=== PATIENT | male | born 1980 | race Caucasian/White ===

== ENCOUNTER 2020-10-10 11:55 | Emergency (ER) | payer OTHER, SELFPAY ==
--- NOTE | ~2020-10-10 | XR_ITS ---
EXAMINATION: XR chest 2V DATE: 10/10/2020 12:53 INDICATION: Cough and shortness of breath TECHNIQUE: PA and lateral views of the chest are obtained. COMPARISON: None available FINDINGS: The lungs are free of acute opacities. There is no pleural effusion or pneumothorax. The ca rdiomediastinal silhouette is normal. There is dextrocurvature of the thoracic spine. IMPRESSION: 1. No acute cardiopulmonary abnormality. Reviewed, dictated and finalized at location A.
[2020-10-10 12:06] VITALS: BP 120/78; PULSE 90; RESP 20; TEMP 36.9; O2SAT 93
--- NOTE | 2020-10-10 12:46 | ED.GENADULT ---
HPI - General Adult General Chief complaint: Dental/Oral Stated complaint: tooth absess Time Seen by Provider: 10/10/20 12:06 Source: patient Mode of arrival: ambulatory Limitations: no limitations History of Present Illness HPI narrative: Patient presents for evaluation of right-sided facial pain and swelling. Symptom onset yesterday. Indicates he was driving home from work when he felt a shaking sensation. He also experienced chills. He states pain in his right lower teeth is sharp, throbbing, without numerical rating. No fever, chills, nausea, vomiting. He indicates he has had some difficulty breathing for the last few weeks. Reports shortness of breath, wheezing, productive cough of white sputum. He does smoke 1-1/2 packs/day. No recent sick contacts. He is already had Covid in the past. He did not get a Covid vaccination. Related Data Allergies Allergy/AdvReac Type Severity Reaction Status Date / Time peanut Allergy Mild Unknown Verified 10/10/20 12:05 BUBBLE GUM Allergy Mild Swelling Uncoded 10/10/20 12:05 IVP DYE Allergy Mild Unknown Uncoded 10/10/20 12:05 IV DYE, IODINE CONTAINING Allergy Unknown Unknown Uncoded 10/10/20 12:05 CONTRAST Review of Systems Review of Systems: Narrative: CONSTITUTIONAL: Reports chills. Denies fever EYES: Denies visual changes, redness, or discharge. ENT: Reports right lower dental pain. Denies rhinorrhea, congestion, sore throat, or otalgia. CARDIOVASCULAR: Denies chest pain, palpitations, or edema. RESPIRATORY: Reports productive cough of white sputum, shortness of wheezing. GASTROINTESTINAL: Denies abdominal pain, nausea, vomiting, or diarrhea. GENITOURINARY: Denies dysuria or hematuria. SKIN: Denies rash or itching. MUSCULOSKELETAL: Denies back pain, joint pain, or myalgia. NEUROLOGIC: Denies headache, numbness, dizziness, or weakness. PSYCHIATRIC: Denies anxiety or depression. [facility] Past Medical History Medical History (Updated 10/10/20 @ 13:57 by ROSLYN Wang, RICHELLE) Allergies Surgical History Surgical History No pertinent past surgical history Family History Family History Mother No problems noted. Social History Social History Smoking status: Current every day smoker Additional smoking assessment comments: 1.5 ppd Substance use: never Living arrangements: alone Gender identity (if verbalized by the patient): Male Spiritual care concerns: No Exam Narrative: Exam Narrative: GENERAL: Well-appearing, well-nourished, and in no acute distress. HEAD: Normocephalic, atraumatic. EYES: PERRLA and EOMI. ENT: Nares clear, no rhinorrhea or epistaxis. Mucous membranes moist. Diffuse dental decay. Multiple fractured teeth. Multiple absent teeth. No visible or palpable abscess. Oropharynx without tonsillar hypertrophy exudate or other lesions. Bilateral TMs pearly fitch nonbulging NECK: Supple. No adenopathy or masses. No carotid bruits or JVD CHEST: Poor inspiratory effort. Lungs bilaterally diminished no respiratory distress. No wheezes rales or rhonchi HEART: Regular rate and rhythm. No murmur heard. Normal peripheral pulses. ABDOMEN: Soft, nontender, nondistended, normal active bowel sounds. EXTREMITIES: Normal range of motion. No edema. SKIN: Warm, dry, no rash. NEURO: No focal deficits. Alert and oriented x3. PSYCH: Normal mood and affect. Course Course Emergency Course: This is a 39-year-old male who presented with complaints of dental pain. On exam he had a cough with reported shortness of breath. Chest x-ray was obtained was negative for acute process. Will treat dental decay with analgesics and abx. Advised follow up outpatient and return for worsening symptoms. Vital Signs Vital signs: Vital Signs Temperature 36.9 C 10/10/20 12
[2020-10-10 14:11] VITALS: BP 136/85; PULSE 84; RESP 20; TEMP 36.9; O2SAT 96
== END 2020-10-10 14:05 | disposition home or self-care (01) ==
PROVIDERS: Emergency Provider Nurse Practitioner; PCP Internal Medicine
DX: K02.9 Dental caries, unspecified (principal); F17.210 Nicotine dependence, cigarettes, uncomplicated
CPT/HCPCS: 71046; 99283

== ENCOUNTER 2020-10-14 17:43 | Outpatient (CLI) | payer OTHER, SELFPAY ==
[2020-10-14 17:54] LABS: Basophils Absolute Auto 0.1 K/mm3 (0.0-0.1); Basophils Percent Auto 0.4 % (0.2-1.2); Eosinophils Absolute Auto 0.2 K/mm3 (0-0.3); Eosinophils Percent Auto 0.9 % (0-4.4); Hematocrit 49.3 % (42.0-52.0); Hemoglobin 16.1 g/dL (14.0-18.0); Immature Granulocyte Absolute 0.11 K/mm3 (0.00-0.031); Immature Granulocyte Percent A 0.7 % (0-0.5); Lymphocytes Absolute Auto 1.87 K/mm3 (0.9-3.2); Lymphocytes Percent Auto 11.4 % (18.3-44.2); Mean Corpuscular HGB Conc 32.7 g/dl (32-36); Mean Corpuscular Hemoglobin 29.9 pg (26-34); Mean Corpuscular Volume 91.5 fl (80-100); Monocytes Percent Auto 5.9 % (2.6-8.5); Neutrophils Absolute Auto 13.2 K/mm3 (1.3-6.7); Neutrophils Percent Auto 80.7 % (45.5-73.1); Platelet Count Result 350 k/mm3 (150-375); Red Blood Count 5.39 M/mm3 (4.6-6.20); Red Cell Distribution Width 13.4 % (11.5-14.5); White Blood Count 16.4 K/mm3 (4.5-10.0)
[2020-10-14 18:04] LABS: Alanine Aminotransferase 21 U/L (4-50); Albumin Level 4.1 g/dL (3.5-5.1); Alkaline Phosphatase 62 U/L (38-126); Anion Gap 9 mmol/L (8-16); Aspartate Amino Transferase 26 U/L (17-59); Bilirubin,Total 0.6 mg/dL (0.2-1.3); Blood Urea Nitrogen 11 mg/dL (9-20); Calcium 9.1 mg/dL (8.4-10.2); Carbon Dioxide 25 mmol/L (22-30); Chloride 104 mmol/L (98-107); Estimated Glomerular Filt Rate > 60; Glucose 102 mg/dL (75-110); Potassium 4.5 mmol/L (3.4-5.0); Sodium 138 mmol/L (137-145)
== END 2020-10-14 17:44 | disposition home or self-care (01) ==
PROVIDERS: PCP Internal Medicine; Visit Provider Nurse Practitioner
DX: K04.7 Periapical abscess without sinus (principal)
CPT/HCPCS: 36415; 80053; 85025

== ENCOUNTER 2020-11-18 10:02 | Outpatient (CLI) | payer OTHER, SELFPAY ==
--- NOTE | 2020-11-18 10:09 | EST_ITS ---
Patient Info Name: Artie Rasheed Age: 39 years : 1980 Gender: Male Ht: 76 in Wt: 425 lbs BSA: 3.31 m2 Exam Date: 11/18/2020 10:23 AM Exam Location: [facility] Stress Patient Status: Outpatient Admit Date: 11/18/2020 Staff Ordering Physician: Osiris Cohen NP Attending Provider: Exercise Technologist: Cricket Quintero, TONJA, RT Exercise Physician: Jose Juan Chicas DO Exam Type: CA stress test treadmill Study Info A treadmill exercise stress test was performed. Summary 1. 1. Negative Tristan exercise stress test for ischemic ST changes by ECG criteria. However, patient achieved only 77% MPHR for age group which reduces sensitivity of the test. 2. 2. Poor functional capacity, achieving 4 METs of workload. 3. 3. Appropriate HR response to exercise. 4. 4. Appropriate HR recovery at 1 minute post exercise. 5. 5. No imaging with stress testing. 6. 6. Patient informed of the above results. Protocol: Tristan Stress ECG Details Stage: REST Duration (min): 3 min : 7 sec Speed (mph): 0.0 Grade (%): 0 HR (bpm): 88 SBP (mmHg): 123 DBP (mmHg): 76 METS: --- Stage: REST Duration (min): 3 min : 25 sec Speed (mph): 0.0 Grade (%): 0 HR (bpm): 91 SBP (mmHg): 123 DBP (mmHg): 76 METS: --- Stage: STAGE 1 Duration (min): 1 min : 0 sec Speed (mph): 1.7 Grade (%): 10 HR (bpm): 117 SBP (mmHg): 123 DBP (mmHg): 76 METS: --- Stage: STAGE 1 Duration (min): 2 min : 0 sec Speed (mph): 1.7 Grade (%): 10 HR (bpm): 131 SBP (mmHg): 123 DBP (mmHg): 76 METS: --- Stage: STAGE 1 Duration (min): 2 min : 59 sec Speed (mph): 1.7 Grade (%): 10 HR (bpm): 137 SBP (mmHg): 159 DBP (mmHg): 78 METS: --- Stage: RECOVERY Duration (min): 1 min : 0 sec Speed (mph): 0.0 Grade (%): 0 HR (bpm): 124 SBP (mmHg): 159 DBP (mmHg): 78 METS: --- Stage: RECOVERY Duration (min): 2 min : 0 sec Speed (mph): 0.0 Grade (%): 0 HR (bpm): 104 SBP (mmHg): 159 DBP (mmHg): 78 METS: --- Stage: RECOVERY Duration (min): 3 min : 0 sec Speed (mph): 0.0 Grade (%): 0 HR (bpm): 101 SBP (mmHg): 162 DBP (mmHg): 77 METS: --- Stage: RECOVERY Duration (min): 3 min : 22 sec Speed (mph): 0.0 Grade (%): 0 HR (bpm): 100 SBP (mmHg): 162 DBP (mmHg): 77 METS: --- Rest HR: 91 bpm Peak HR: 138 bpm Rest Sys BP: 123 mmHg Peak Sys BP: 162 mmHg Max Pred HR: 179 bpm % Max Pred HR: 77 % Target HR: 152 bpm Max RPP: 22,356 bpm*mmHg Medina Score: -2 Termination Reason: Maximal effort/unable to continue Cardiac Symptoms: Shortness of breath, Baseline sob and audibly sob with exercise Max ST Seg Deviation: 1.00 mm Total Time: 2 min : 59 sec Rest Mcpherson BP: 76 mmHg Peak Mcpherson BP: 77 mmHg Angina Score: None Total METS: 4.7 Resting ECG Sinus rhythm, IRBBB. Stress ECG No ST changes. Arrhythmias None. Report Signatures Electronically signed by Jose Juan Chicas DO on
== END 2020-11-18 10:03 | disposition home or self-care (01) ==
PROVIDERS: PCP Internal Medicine; Visit Provider Nurse Practitioner
DX: R06.02 Shortness of breath (principal)
CPT/HCPCS: 93017

== ENCOUNTER 2024-06-13 18:42 | Emergency (ER) | payer OTHER, SELFPAY ==
--- NOTE | ~2024-06-13 | XR_ITS ---
EXAMINATION: XR forearm LT 2V DATE: 06/13/2024 20:29 INDICATION: Left elbow pain. TECHNIQUE: 2 views of left forearm were obtained. COMPARISON: None. FINDINGS: Alignment is normal. No fracture. Joint spaces are normal. No elbow joint effusion. IMPRESSION: 1. Normal left forearm. Reviewed, dictated and finalized at location A. AL WINDER IMPRESSION: 1. Normal left forearm.
--- NOTE | ~2024-06-13 | XR_ITS ---
EXAMINATION: XR knee RT 3V DATE: 06/13/2024 20:29 INDICATION: Right knee pain. TECHNIQUE: 3 views of right knee were obtained. COMPARISON: None. FINDINGS: Alignment is normal. No fracture. There is moderate osteoarthritis of lateral and patellofe moral compartments and mild osteoarthritis of medial compartment. There is a small knee joint effusio n. IMPRESSION: 1. Moderate right knee osteoarthritis. 2. Small right knee joint effusion. Reviewed, dictated and finalized at location A. CTOR OF PHARMACY
--- NOTE | ~2024-06-13 | CT_ITS ---
EXAMINATION: CT brain wo con DATE: 06/13/2024 20:34 INDICATION: Left-sided numbness and tingling. TECHNIQUE: Computed tomography (CT) of the head was performed without intravenous contrast. The mA wa s adjusted according to patient size. Iterative reconstruction technique was employed. The dose-lengt h product was 908.00 mGy-cm. COMPARISON: None FINDINGS: There is no intracranial hemorrhage, acute infarction, or abnormal intracranial mass lesion . The ventricles are normal in size. There is mucosal thickening in the paranasal sinuses. The orbit s are normal. The mastoid air cells are normal. IMPRESSION: 1. Normal brain. Reviewed, dictated and finalized at location A. OWCASE TURNER IMPRESSION: 1. Normal brain.
--- NOTE | ~2024-06-13 | XR_ITS ---
EXAMINATION: XR elbow LT min 3V DATE: 06/13/2024 20:29 INDICATION: Left elbow pain. TECHNIQUE: 4 views of left elbow were obtained. COMPARISON: None. FINDINGS: Alignment is normal. No fracture. Joint spaces are normal. No elbow joint effusion. IMPRESSION: 1. Normal left elbow. Reviewed, dictated and finalized at location A. IMPRESSION: 1. Normal left elbow.
--- NOTE | ~2024-06-13 | XR_ITS ---
EXAMINATION: XR tibia fibula RT 2V DATE: 06/13/2024 20:29 INDICATION: Right lower leg pain. TECHNIQUE: 2 views of right tibia and fibula on 4 radiographs were obtained. COMPARISON: None. FINDINGS: Alignment is normal. No fracture. There is moderate right knee osteoarthritis. There is a s mall knee joint effusion. IMPRESSION: 1. Moderate right knee osteoarthritis. 2. Small right knee joint effusion. Reviewed, dictated and finalized at location A. H DYER
--- OUTSIDE RECORDS SUMMARY | 2024-06-13 18:44 | XMS_ITS | Clinical Summary ---
Author Organization [facility] Address [address] [place] [address] Care Team Providers Care Adzing And Boring Machine Operator Name Role Phone Unavailable Primary Care Provider Unavailabl e Source Comments [facility],non-owned Affiliates and Associated Physician Practices is amultiple site organization consisting of ambulatory clinics and hospital sitesin [place], [place], [place] and [place]. This disclosure is being madepursuant to the Care Everywhere program and may not contain all information available regarding this patient. Last updated 18.[facility] Allergies Active Allergy Reactions Criticality Noted Date Comments Contrast-Iodinated Agents For Ct/Other Other 06/29/2018 unknown Medications Be aware that medications may not be up to date on this document. Always verify current medications with the patient. 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 Social History Tobacco Use Types Packs/Day Years Used Date Smoking Tobacco: Every Day Smokeless Tobacco: Never Alcohol Use Standard Drinks/Week Comments No 0 (1 standard drink = 0.6 oz pur e alcohol) Sex and Gender Information Value Date Recorded Sex Assigned at Not on file Gender Identity Not on file Sexual Orientation Not on file Last Filed Vital Signs Vital Sign Reading Time Taken Comments Blood Pressure 123/85 07/02/2018 8:00 AM CDT Pulse 86 07/02/2018 8:00 AM CDT Temperature 36.7 C (98 F) 07/02/2018 8:00 AM CDT Respiratory Rate 18 07/02/2018 8:00 AM CDT Oxygen Saturation 99% 07/02/2018 8:00 AM CDT Inhaled Oxygen Concentration - - Weight 163.3 kg (360 lb 1 oz) 06/29/2018 9:00 PM LIPCOAT SPRAYER Height 195.6 cm (6' 5 ) 06/29/2018 9:00 PM LIPCOAT SPRAYER Body Mass Index 42.7 06/29/2018 9:00 PM LIPCOAT SPRAYER Plan of Treatment Health Maintenance Due Date Last Done Comments COLOGUARD (AGES 45-75) - COL ON CA SCREENING 1980 COLON MONITORING 1980 COLONOSCOPY - COLON CA SCREENING 1980 CT COLONOGRAPHY - COLON CA SCREENING 1980 Colorectal Cancer Screening 1980 FIT - COLON CA SCREENING 1980 FLEX SIG - COLON CA SCREENING 1980 HEPATITIS C SCREENING 12/15/1996 DTAP/TDAP/TD VACCINES (1 - Tdap) 1997 HEPATITIS B VACCINE (1 of 3 - 19+ 3-dose series) 1997 PNEUMOCOCCAL VACCINE (1 of 2 - PCV) 1997 LIPID TESTING 07/02/2023 07/01/2018 COVID-19 VACCINE (1 - 2023-2 5 season) 2023 INFLUENZA VACCINE (#1) 2023 DEPRESSION SCREENING 04/24/2024 ZOSTER VACCINE (1 of 2) 2028 HIV SCREENING Completed 06/29/2018 HIB VACCINE Aged Out No longer eligi ble based on patient's age to complete this topic HPV VACCINE Aged Out No longer eligi ble based on patient's age to complete this topic MENINGOCOCCAL (Group B) VACCINE Aged Out No longer eligible based on patient's age to complete this topic MENINGOCOCCAL VACCINE Aged Out No ne aram eligible based on patient's age to complete this topic Procedures Procedure Name Priority Date/Time Associated Diagnosis Comments LIPID PROFILE Routine 07/01/2018 6:34 AM CDT HIV-1 HIV-2 ANTIGEN/ANTIBODY STAT 06/29/2018 4:34 PM LIPCOAT SPRAYER from Last 3 Months or Most Recently Relevant to Health Maintenance Results * (ABNORMAL) LIPID PROFILE (07/01/2018 6:34 AM CDT) Cholesterol Total 184 <200 mg/dL 07/01/2018 7:05 AM CDT [facility] HDL 31(L) >40 mg/dL 07/01/2018 7:05 AM [facility] Comment: ATP III Classification of HDL Cholesterol: <40 mg/dL: Considered a major risk factor. >60 mg/dL: Considered a negative risk factor. LDL Calculated 127(H) <100 mg/dL 07/01/2018 7:05 AM [facility] Comment: ATP III Classification of LDL Cholesterol: <100 mg/dL: Optimal 100 - 129 mg/dL: Near Optimal/Above Optimal 130 - 159 mg/dL: Borderline High 160 - 189 mg/dL: High >190 mg/dL: Very High Triglycerides 130 <150 mg/dL 07/01/2018 7:05 AM [facility] Comment: ATP III Classification of Triglycerides: <150 mg/dL: Normal 150 - 199 mg/dL: Borderline High 200 - 400 mg/dL: High >500 mg/dL: Very High Blood BLOOD SPECIMEN / Unknown Venipuncture / Unknown 07/01/2018 6:34 AM CDT 07/01/2018 6:39 AM CDT Elsa Morejon MD LAB - CHEMISTRY [facility] Performing Organization Address City/[facility]/ZIP Co de Phone Number [address] [phone] * HIV-1 HIV-2 ANTIGEN/ANTIBODY (06/29/2018 4:34 PM LIPCOAT SPRAYER) HIV Antigen/Antibod y 1 & 2 Non-reacti ve Non-react belinda 06/29/2018 5:17 PM LIPCOAT SPRAYER [facility] Comment: Neither HIV-1 p24 Antigen nor HIV-1/HIV-2 Antibodies are detected. Blood BLOOD SPECIMEN / Unknown Venipuncture / Unknown 06/29/2018 4:34 PM LIPCOAT SPRAYER 06/29/2018 4:34 PM LIPCOAT SPRAYER Elia Caba MD LAB - HEMATOLOGY OR DERABLES Performing Organization Address City/[facility]/ZIP Co de Phone Number [address] [phone] from Last 3 Months or Most Recently Relevant to Health Maintenance Advance Directives * Full Code (Latest Code Status on File) Date Activated Date Inactivated Comments 06/29/2018 8:50 PM 07/02/2018 3:59 PM * Full Code Date Activated Date Inactivated Comments 06/29/2018 12:23 PM 06/29/2018 8:50 PM
--- OUTSIDE RECORDS SUMMARY | 2024-06-13 18:44 | XMS_ITS | Referral Summary ---
Author Organization [facility] [employer] Address [address] [place] [address] Care Team Providers Care Offshoring Manager Name Role Phone Unavailable Primary Care Provider Unavailabl e Source Comments [facility],non-owned Affiliates and Associated Physician Practices is amultiple site organization consisting of ambulatory clinics and hospital sitesin [place], [place]. This disclosure is being madepursuant to the Care Everywhere program and may not contain all information available regarding this patient. Last updated 18.[facility] [employer] Allergies Active Allergy Reactions Criticality Noted Date [...] (360 lb 1 oz) 06/29/2018 9:00 PM STAFF TRAINER Height 195.6 cm (6' 5 ) 06/29/2018 9:00 PM STAFF TRAINER Body Mass Index 42.7 06/29/2018 9:00 PM STAFF TRAINER Functional Status Functional Status Response Date of Assess ment Is person deaf or have serious hearing difficult y? No 06/29/2018 Is person blind or have serious difficulty seein g? No 06/29/2018 Does person have serious dif ficulty walking/climbing stairs? No 06/29/2018 Does person have difficulty dressing/bathing? No 06/29/2018 Does person have difficulty doing errands alone? No 06/29/2018 Cognitive Status Response Date of Assessm ent Does person have difficulty concentrating/remembering/making decisions? No 06/29/2018 Plan of Treatment Not on file Procedures Procedure Name Priority Date/Time Associated Diagnosis Comments LIPID PROFILE Routine 07/01/2018 6:34 AM CDT HIV-1 HIV-2 ANTIGEN/ANTIBODY STAT 06/29/2018 4:34 PM STAFF TRAINER from Last 3 Months or Most Recently Relevant to Health Maintenance Results * (ABNORMAL) LIPID PROFILE (07/01/2018 6:34 AM CDT) Cholesterol Total 184 <200 mg/dL 07/01/2018 7:05 AM [facility] HDL 31(L) >40 mg/dL 07/01/2018 7:05 AM [facility] Comment: ATP III Classification of HDL Cholesterol: <40 mg/dL: Considered a major risk factor. >60 mg/dL: Considered a negative risk factor. LDL Calculated 127(H) <100 mg/dL 07/01/2018 7:05 AM [facility] Comment: ATP III Classification of LDL Cholesterol: <100 mg/dL: Optimal 100 - 129 mg/dL: Near Optimal/Above Optimal 130 - 159 mg/dL: Borderline High 160 - 189 mg/dL: High >190 mg/dL: Very High Triglycerides 130 <150 mg/dL 07/01/2018 7:05 AM [facility] Comment: ATP III Classification of Triglycerides: <150 mg/dL: Normal 150 - 199 mg/dL: Borderline High 200 - 400 mg/dL: High >500 mg/dL: Very High Blood BLOOD SPECIMEN / Unknown Venipuncture / Unknown 07/01/2018 6:34 AM CDT 07/01/2018 6:39 AM CDT Elsa Morejon MD LAB - CHEMISTRY [facility] [address] [phone] * HIV-1 HIV-2 ANTIGEN/ANTIBODY (06/29/2018 4:34 PM STAFF TRAINER) HIV Antigen/Antibod y 1 & 2 Non-reacti ve Non-react belinda 06/29/2018 5:17 PM STAFF TRAINER [facility] Comment: Neither HIV-1 p24 Antigen nor HIV-1/HIV-2 Antibodies are detected. Blood BLOOD SPECIMEN / Unknown Venipuncture / Unknown 06/29/2018 4:34 PM STAFF TRAINER 06/29/2018 4:34 PM STAFF TRAINER Elia Caba MD LAB - HEMATOLOGY OR DERABLES [address] [phone] from Last 3 Months or Most Recently Relevant to Health Maintenance Advance Directives * Full Code (Latest Code Status on File) Date Activated Date Inactivated Comments 06/29/2018 8:50 PM 07/02/2018 3:59 PM * Full Code Date Activated Date Inactivated Comments 06/29/2018 12:23 PM 06/29/2018 8:50 PM
--- OUTSIDE RECORDS SUMMARY | 2024-06-13 18:44 | XMS_ITS | Patient Health Summary ---
Author Organization [facility] Address [address] [place] [address] Care Team Providers Care Hospital Aide Name Role Phone Unavailable Primary Care Provider Unavailabl e Note from [facility],non-owned Affiliates and Associated Physician Practices is amultiple site organization consisting of ambulatory clinics and hospital sitesin [place], [place], [place] and [place]. This disclosure is being madepursuant to the Care Everywhere program and may not contain all information available regarding this patient. Last updated 18.[facility] [employer] Allergies * Contrast-Iodinated Agents For Ct/Other(Other) Medications Be aware that medications may not [...] (360 lb 1 oz) 06/29/2018 9:00 PM BACK END DEVELOPER Height 195.6 cm (6' 5 ) 06/29/2018 9:00 PM BACK END DEVELOPER Body Mass Index 42.7 06/29/2018 9:00 PM BACK END DEVELOPER Procedures * LIPID PROFILE(Performed 07/01/2018) * HEMOGLOBIN A1C(Performed 07/01/2018) * CT HEAD WO CONTRAST(Performed 06/29/2018) Performed for Paranoia (HCC) * SYPHILIS ANTIBODY CASCADING REFLEX(Performed 06/29/2018) * HIV-1 HIV-2 ANTIGEN/ANTIBODY(Performed 06/29/2018) * XR SKULL 4VW OR MORE(Performed 06/29/2018) Performed for Paranoia (HCC) * URINE DRUG SCREEN IMMUNOASSAY(Performed 06/29/2018) * URINALYSIS W/MICROSCOPIC NO CULTURE(Performed 06/29/2018) * ALCOHOL ETHYL BLOOD(Performed 06/29/2018) * TSH(Performed 06/29/2018) * COMPREHENSIVE METABOLIC PANEL(Performed 06/29/2018) * CBC W AUTO DIFFERENTIAL(Performed 06/29/2018) Results * HEMOGLOBIN A1C (07/01/2018 6:34 AM CDT) Hemoglobin A1c 5.8 4.4 - 6.3 % 07/02/2018 12:07 PM [facility] Estimated Average Glucose 120 mg/dL 07/02/2018 12:07 PM [facility] Comment: HbA1c Interpretation: Treatment target values recommended by ADA and other clinical organizations should be used to evaluate metabolic control in patients. Treatment Target Values: Normal : < 5.7% Pre-diabetes: 5.7-6.4% Diabetes: Equal to or greater than 6.5% Reference: [place] Diabetes Association Standards of Care in Diabetes -2014 In patients 70 years and older consider HbA1c target range of 7.0-7.5% Reference: Diabetes Mellitus in Older People: Position Statement on behalf of the International Association of Gerontology and Geriatrics (IAGG), the Diabetes Working Republican for Older People (EDWPOP), and the International Task Force of Experts in Diabetes. Maksim Pimentel et al. J [employer] Medical Directors Association. 2012 Test results diagnostic of diabetes should be repeated for confirmation. The Sebia Capillary 2 assay for the measurement of HbA1c is a National Glycohemoglobin Standardization Program (NGSP)certified method. HbA1c Interpretation: Treatment target values recommended by ADA and other clinical organizations should be used to evaluate metabolic control in patients. Treatment Target Values: Normal : < 5.7% Pre-diabetes: 5.7-6.4% Diabetes: Equal to or greater than 6.5% Reference: [place] Diabetes Association Standards of Care in Diabetes -2014 In patients 70 years and older consider HbA1c target range of 7.0-7.5% Reference: Diabetes Mellitus in Older People: Position Statement on behalf of the International Association of Gerontology and Geriatrics (IAGG), the Diabetes Working Republican for Older People (EDWPOP), and the International Task Force of Experts in Diabetes. Maksim Pimentel, et al. J [employer] Medical Directors Association. 2012 Test results diagnostic of diabetes should be repeated for confirmation. The Sebia Capillary 2 assay for the measurement of HbA1c is a National Glycohemoglobin Standardization Program (NGSP)certified method. Blood BLOOD SPECIMEN / Unknown Venipuncture / Unknown 07/01/2018 6:34 AM CDT 07/01/2018 6:39 AM CDT Elsa Morejon MD LAB - CHEMISTRY JESUS [facility] Organization Address City/State/ZIP Co de Phone Number [address] [phone] * (ABNORMAL) LIPID PROFILE (07/01/2018 6:34 AM CDT) Cholesterol Total 184 <200 mg/dL 07/01/2018 7:05 AM [facility] HDL 31(L) >40 mg/dL 07/01/2018 7:05 AM [facility] Comment: ATP III Classification of HDL Cholesterol: <40 mg/dL: Considered a major risk factor. >60 mg/dL: Considered a negative risk factor. LDL Calculated 127(H) <100 mg/dL 07/01/2018 7:05 AM [facility] Comment: ATP III Classification of LDL Cholesterol: <100 mg/dL: Optimal 100 - 129 mg/dL: Near Optimal/Above Optimal 130 - 159 mg/dL: Borderline High 160 - 189 mg/dL: High >190 mg/dL: Very High Triglycerides 130 <150 mg/dL 07/01/2018 7:05 AM CDT [facility] Comment: ATP III Classification of Triglycerides: <150 mg/dL: Normal 150 - 199 mg/dL: Borderline High 200 - 400 mg/dL: High >500 mg/dL: Very High Blood BLOOD SPECIMEN / Unknown Venipuncture / Unknown 07/01/2018 6:34 AM CDT 07/01/2018 6:39 AM CDT Elsa Morejon MD LAB - CHEMISTRY JESUS MCKOY [address] [phone] * CT HEAD WO CONTRAST (06/29/2018 4:48 PM BACK END DEVELOPER) Anatomical Region Laterality Modality Head Computed Tomogra phy 06/29/2018 5:12 PM BACK END DEVELOPER Impressions 06/30/2018 9:12 AM BACK END DEVELOPER IMPRESSION: 1. No acute intracranial process. I, Dr. JANET LARSON M.D. have personally reviewed and interpreted this examination/study. This report was electronically signed by JANET LARSON M.D. on 06/30/2018 9:12 AM . Narrative 06/30/2018 9:12 AM BACK END DEVELOPER EXAMINATION: Computed tomography (CT) of the head without contrast HISTORY: delusions TECHNIQUE: CT of the head was performed without contrast according to standard protocol. FINDINGS: No prior study is available for comparison at the time of this dictation. No acute intra- or extra-axial fluid collections are identified. The ventricles are of normal size, shape, and morphology. The basilar cisterns are patent. No mass effect or midline shift is seen. The fitch-white matter differentiation is normal. Other than mild paranasal sinus disease, the visualized portions of the orbits, paranasal sinuses, and mastoids appear normal. No acute fracture is identified. Procedure Note Janet Larson MD - 06/30/2018 EXAMINATION: Computed tomography (CT) of the head without contrast HISTORY: delusions TECHNIQUE: CT of the head was performed without contrast according to standard protocol. FINDINGS: No prior study is available for comparison at the time of this dictation. No acute intra- or extra-axial fluid collections are identified. The ventricles are of normal size, shape, and morphology. The basilarcisterns are patent. No mass effect or midline shift is seen. The fitch-whitematter differentiation is normal. Other than mild paranasal sinus disease, the visualized portions of the orbits, paranasal sinuses, and mastoids appear normal. No acute fracture is identified. IMPRESSION: 1. No acute intracranial process. I, Dr. JANET LARSON M.D. have personally reviewed and interpreted this examination/study. This report was electronically signed by JANET LARSON M.D. on 06/30/2018 9:12 AM . Elia Caba MD CT ORDERABLES * HIV-1 HIV-2 ANTIGEN/ANTIBODY (06/29/2018 4:34 PM BACK END DEVELOPER) HIV Antigen/Antibod y 1 & 2 Non-reacti ve Non-react belinda 06/29/2018 5:17 PM BACK END DEVELOPER [facility] Comment: Neither HIV-1 p24 Antigen nor HIV-1/HIV-2 Antibodies are detected. Blood BLOOD SPECIMEN / Unknown Venipuncture / Unknown 06/29/2018 4:34 PM BACK END DEVELOPER 06/29/2018 4:34 PM BACK END DEVELOPER Elia Caba MD LAB - HEMATOLOGY OR DERABLES [address] [phone] * SYPHILIS ANTIBODY CASCADING REFLEX (06/29/2018 4:34 PM BACK END DEVELOPER) Treponema pallidum Antibody Non-react belinda Non-react belinda 06/29/2018 5:17 PM BACK END DEVELOPER [facility] Comment: No Laboratory evidence of syphilis infection. Note: Circulating antibodies may be low or undetectable in early infection. If recent exposure is suspected, re-draw sample in 2-4 weeks and repeat testing. Blood BLOOD SPECIMEN / Unknown Venipuncture / Unknown 06/29/2018 4:34 PM BACK END DEVELOPER 06/29/2018 4:34 PM BACK END DEVELOPER Elia Caba MD LAB - SEROLOGY [facility] Organization Address City/State/ZIP Co de Phone Number [facility] [address] [place] [address] * XR SKULL 4VW OR MORE (06/29/2018 1:36 PM BACK END DEVELOPER) Anatomical Region Laterality Modality Head Radiographic Richelle ging 06/29/2018 1:51 PM BACK END DEVELOPER Impressions 06/29/2018 1:56 PM BACK END DEVELOPER IMPRESSION: No evidence of a radiopaque foreign body. Dictated by Gerald Boston M.D. (radiology practitioner assistant). I, Dr. LARS CABALLERO have personally reviewed and interpreted this examination/study. This report was electronically signed by LARS CABALLERO on 06/29/2018 1:56 PM . Narrative 06/29/2018 1:56 PM BACK END DEVELOPER Exam: XR SKULL 4VW OR MORE Date: 06/29/2018 1:37 PM History: FB Findings: Other than dental restorations, there is no radiopaque foreign body. No lytic or blastic lesions are seen in the calvarium. The calvarium is normal in size, shape, and mineralization. The sella turcica, petrous ridges, bony orbits, and paranasal sinuses are normal. Procedure Note Lars Caballero DO - 06/29/2018 Exam: XR SKULL 4VW OR MORE Date: 06/29/2018 1:37 PM History: FB Findings: Other than dental restorations, there is no radiopaque foreign body. No lytic or blastic lesions are seen in the calvarium. The calvarium is normal in size, shape, and mineralization. The sella turcica, petrous ridges, bony orbits, and paranasal sinuses are normal. IMPRESSION: No evidence of a radiopaque foreign body. Dictated by Gerald Boston M.D. (radiology practitioner assistant). IDr. LARS have personally reviewed and interpreted this examination/study. This report was electronically signed by LARS CABALLERO on 06/29/2018 1:56 PM . Aicha Julien MD DIAGNOSTIC IMAGING O RDERABLES * (ABNORMAL) URINALYSIS W/MICROSCOPIC NO CULTURE (06/29/2018 9:[address] [facility]) Color UA Straw Straw, Yellow, Colorless 06/29/2018 9:28 AM [facility] Clarity UA Clear Clear, Slt Cloudy 06/29/2018 9:28 AM [facility] Specific [place] UA 1.003(L) 1.005 - 1.030 06/29/2018 9:28 AM [facility] pH UA 6.0 5.0 - 8.0 pH 06/29/2018 9:28 AM [facility] Protein UA Negative Negative mg/dL 06/29/2018 9:28 AM [facility] Glucose UA Negative Negative mg/dL 06/29/2018 9:28 AM [facility] Ketone UA Negative Negative mg/dL 06/29/2018 9:28 AM [facility] Bilirubin UA Negative Negative mg/dL 06/29/2018 9:28 AM [facility] Blood UA 1+(A) Negative 06/29/2018 9:28 AM [facility] Nitrite UA Negative Negative 06/29/2018 9:28 AM [facility] Leukocyte Esterase Negative Negative 06/29/2018 9:28 AM [facility] Urobilinogen UA Negative Negative mg/dL 06/29/2018 9:28 AM [facility] RBC UA 0-2 None Seen, 0-2, 3-5 /HPF 06/29/2018 9:28 AM [facility] WBC UA 0-5 None Seen, 0-5 /HPF 06/29/2018 9:28 AM [facility] Bacteria UA Trace None, Trace /HPF 06/29/2018 9:28 AM [facility] Squamous Epithelial Cells UA 0-2 None Seen, 0-2 /HPF 06/29/2018 9:28 AM [facility] Urine URINE SPECIMEN OBTAINED BY CLEAN CATCH PROCEDURE / Unknown Collection / Unknown 06/29/2018 9:22 AM BACK END DEVELOPER 06/29/2018 9:[address] [facility] Debra Ceron PA-C LAB - URINAL YSIS ORDERABLES [facility] [address] [place] [address] * DRUG SCREEN TOX URINE PANEL (06/29/2018 9:[address] [facility]) Amphetamines Screen Urine Negative Negative: < 1000 ng/mL 06/29/2018 9:35 AM [facility] Barbiturates Screen Urine Negative Negative: < 200 ng/mL 06/29/2018 9:35 AM [facility] Benzodiazepine Screen Urine Negative Negative: < 200 ng/mL 06/29/2018 9:35 AM [facility] Opiates Urine Negative Negative: < 300 ng/mL 06/29/2018 9:35 AM [facility] Cocaine Metabolites Urine Negative Negative: < 300 ng/mL 06/29/2018 9:35 AM [facility] Phencyclidine Screen Urine Negative Negative: < 25 ng/ml 06/29/2018 9:35 AM [facility] Cannabinoids Screen Urine Negative Negative: <50 ng/mL 06/29/2018 9:35 AM [facility] Methadone Screen Urine Negative Negative: < 300 ng/mL 06/29/2018 9:35 AM [facility] Urine URINE / Unknown Collection / Unknown 06/29/2018 9:[address] [facility] 06/29/2018 9:22 AM [facility] - 06/29/2018 9:[address] [facility] The Urine Toxicology Screening Panel does not screen for Propoxyphene, Meprobamate, Carisoprodol, Trazodone, eagd-oej-uzfaxfi medications and/or volatiles (Acetone, Isopropanol, Methanol or Ethylene Glycol). Ethanol, Salicylate, Acetaminophen, Tricyclic Antidepressants and several therapeutic drugs may be individually assayed in serum or plasma specimen. Toxicology testing by the [facility] is an aid to medical diagnosis and treatment of patients. No documented chain of custody was maintained. Results are intended to be used for clinical purposes only. Debra Ceron PA-C LAB - URINE CHEMISTRY ORDERABLES [facility] [address] [phone] * (ABNORMAL) CBC W AUTO DIFFERENTIAL (06/29/2018 8:[address] [facility]) WBC 11.3(H) 3.5 - 10.5 10 3/uL 06/29/2018 8:50 AM [facility] RBC 5.69 4.30 - 5.70 10 6/uL 06/29/2018 8:50 AM [facility] Hemoglobin 17.1 13.5 - 17.5 g/dL 06/29/2018 8:50 AM [facility] Hematocrit 50.4(H) 39.0 - 50.0 % 06/29/2018 8:50 AM [facility] MCV 88.6 81.0 - 97.0 fL 06/29/2018 8:50 AM [facility] MCH 30.1 28.0 - 34.0 pg 06/29/2018 8:50 AM [facility] MCHC 33.9 32.0 - 36.0 g/dL 06/29/2018 8:50 AM [facility] Platelet Count 342 150 - 400 10 3/uL 06/29/2018 8:50 AM [facility] RDW-SD 43.3 36.0 - 50.0 fL 06/29/2018 8:50 AM [facility] RDW-CV 13.3 11.2 - 14.8 % 06/29/2018 8:50 AM [facility] MPV 10.0 9.3 - 12.8 fL 06/29/2018 8:50 AM [facility] nRBC Absolute 0.00 0 10 3/uL 06/29/2018 8:50 AM [facility] nRBC Auto 0.0 0 /100 WBC 06/29/2018 8:50 AM [facility] Neutrophils % 75.6(H) 35.0 - 70.0 % 06/29/2018 8:50 AM [facility] Lymphocytes % 15.3(L) 19.7 - 55.1 % 06/29/2018 8:50 AM [facility] Monocytes % 7.6 3.0 - 15.0 % 06/29/2018 8:50 AM [facility] Eosinophils % 0.7 0.0 - 6.0 % 06/29/2018 8:50 AM [facility] Basophil % 0.4 0.0 - 1.5 % 06/29/2018 8:50 AM [facility] Neutrophils Absolute 8.5(H) 1.6 - 7.0 10 3/uL 06/29/2018 8:50 AM [facility] Lymphocyte Absolute 1.7 0.8 - 2.9 10 3/uL 06/29/2018 8:50 AM [facility] Monocytes Absolute 0.86(H) 0.14 - 0.66 10 3/uL 06/29/2018 8:50 AM [facility] Eosinophils Absolute 0.08 0.00 - 0.45 10 3/uL 06/29/2018 8:50 AM [facility] Basophils Absolute 0.04 0.00 - 0.06 10 3/uL 06/29/2018 8:50 AM [facility] Immature Granulocytes % 0.4 0.0 - 1.0 % 06/29/2018 8:50 AM [facility] Blood BLOOD SPECIMEN / Unknown Venipuncture / Unknown 06/29/2018 8:[address] [facility] 06/29/2018 8:[address] [facility] Debra Ceron PA-C LAB - HEMATO LOGY ORDERABLES [address] [phone] * (ABNORMAL) COMPREHENSIVE METABOLIC PANEL (06/29/2018 8:[address] [facility]) BUN 6(L) 7 - 26 mg/dL 06/29/2018 9:04 AM [facility] Creatinine 0.9 0.6 - 1.2 mg/dL 06/29/2018 9:04 AM [facility] Sodium 137 136 - 145 mmol/L 06/29/2018 9:04 AM [facility] Potassium 3.9 3.5 - 4.5 mmol/L 06/29/2018 9:04 AM [facility] Chloride 103 98 - 107 mmol/L 06/29/2018 9:04 AM [facility] CO2 22 22 - 29 mmol/L 06/29/2018 9:04 AM [facility] Glucose 109 70 - 115 mg/dL 06/29/2018 9:04 AM [facility] Calcium 9.5 8.4 - 10.2 mg/dL 06/29/2018 9:04 AM [facility] Protein Total 8.4(H) 6.0 - 8.3 g/dL 06/29/2018 9:04 AM [facility] Albumin 3.9 3.4 - 5.0 g/dL 06/29/2018 9:04 AM [facility] Bilirubin Total 0.8 0.2 - 1.2 mg/dL 06/29/2018 9:04 AM [facility] Alkaline Phosphatase 81 40 - 150 Units/L 06/29/2018 9:04 AM [facility] ALT 41 0 - 55 Units/L 06/29/2018 9:04 AM [facility] AST 21 5 - 34 Units/L 06/29/2018 9:04 AM [facility] Anion Gap 16 8 - 18 06/29/2018 9:04 AM [facility] BUN/Creatinine Ratio 7 7 - 23 06/29/2018 9:04 AM [facility] Osmolality Calculated 282 270 - 300 mOsm/kg 06/29/2018 9:04 AM [facility] Albumin/Globulin Ratio 0.9(L) 1.1 - 2.3 06/29/2018 9:04 AM [facility] eGFR >60 >60 mL/min/1.7 3 m2 06/29/2018 9:04 AM [facility] Blood BLOOD SPECIMEN / Unknown Venipuncture / Unknown 06/29/2018 8:46 AM BACK END DEVELOPER 06/29/2018 8:[address] [facility] Debra Ceron PA-C LAB - CHEMIS TRY ORDERABLES [address] [phone] * ALCOHOL ETHYL BLOOD (06/29/2018 8:[address] [facility]) Interpretation Ethanol None Detected None Detected mg/dL 06/29/2018 9:04 AM [facility] Comment: Ethanol levels less than 10 mg/dL are resulted as None detected . Blood BLOOD SPECIMEN / Unknown Venipuncture / Unknown 06/29/2018 8:46 AM BACK END DEVELOPER 06/29/2018 8:46 AM BACK END DEVELOPER Milton Esquivel MD LAB - CHEMISTRY JESUS MCKOY [address] [phone] * TSH (06/29/2018 8:46 AM BACK END DEVELOPER) TSH 1.098 0.350 - 4.940 uIU/mL 06/29/2018 9:28 AM BACK END DEVELOPER [facility] Blood BLOOD SPECIMEN / Unknown Venipuncture / Unknown 06/29/2018 8:46 AM BACK END DEVELOPER 06/29/2018 8:46 AM BACK END DEVELOPER Debra Ceron PA-C LAB - CHEMIS TRY ORDERABLES [address] [phone]
--- OUTSIDE RECORDS SUMMARY | 2024-06-13 18:44 | XMS_ITS | Clinical Summary ---
Author Organization [facility] Address [address] [place] [address] Care Team Providers Care Podiatric Medicine Professor Name Role Phone No, Physician Primary Care Provider [phone] Allergies No known active allergies Active Problems Problem Noted Date Diagnosed Date Trench foot of left lower extremity 06/02/2023 Family History Medical History Relation Name Comments Arthritis Brother Family history of arthritis - (Added by TW Conv) Hypertension Brother Family history of hypertension - (Added by TW Conv) Lung disease Brother Family history of lung disease - (Added by TW Conv) Mental illness Brother Chronic menta l illness - (Added by TW Conv) Alcohol abuse Father Family history of alcoholism - (Added by TW Conv) Arthritis Father Family history of arthritis - (Added by TW Conv) Diabetes Father Family history of diabetes mellitus - (Added by TW Conv) Heart disease Father Family history of cardiac disorder - (Added by TW Conv) Hypertension Father Family history of hypertension - (Added by TW Conv) Mental illness Father Chronic menta l illness - (Added by TW Conv) Stroke Father Family history of cerebrovascular accident (CVA) - (Added by TW Conv) Relation Name Status Comments Brother Father Social History Tobacco Use Types Packs/Day Years Used Date Smoking Tobacco: Unknown Tobacco Cessation:Counseling Given: Not Answered Personal Safety Answer Date Recorded Have you ever been in or are you currently in a harmful physical or emotional relationship or is someone making you feel afraid or unsafe? Denies 06/01/2023 Sex and Gender Information Value Date Recorded Sex Assigned at Not on file Legal Sex Male 11:04 AM ADVISORY INTERN Gender Identity Not on file Sexual Orientation Not on file Obstetrics History Last Filed Vital Signs Vital Sign Reading Time Taken Comments Blood Pressure 98/78 06/02/2023 4:30 PM ADVISORY INTERN Pulse 76 06/02/2023 4:30 PM ADVISORY INTERN Temperature 36.6 C (97.9 F) 06/02/2023 2:10 AM ADVISORY INTERN Respiratory Rate 16 06/01/2023 11:05 PM ADVISORY INTERN Oxygen Saturation 91% 06/02/2023 4:30 PM ADVISORY INTERN Inhaled Oxygen Concentration - - Weight 172.4 kg (380 lb) 06/01/2023 11:05 PM ADVISORY INTERN Height 193 cm (6' 4 ) 06/01/2023 11:05 PM ADVISORY INTERN Body Mass Index 46.26 06/01/2023 11:05 PM ADVISORY INTERN Plan of Treatment Health Maintenance Due Date Last Done Comments Colon Cancer Screening-Colonoscopy 1978 Depression Screening 1978 DTaP/Tdap/Td Vaccine (1 - Tdap) 1989 Hepatitis B Screening 1996 Regular Well Visit/Exam 18-64 1996 Covid-19 Vaccine (3 - 2023-2 5 season) 2023 01/24/2022, 11/16/2021 Influenza Vaccine (#1) 2023 01/24/2022 Hepatitis C Screening Completed 10/15/2016 , 10/29/2015 HPV Vaccines Aged Out No longer eligi ble based on patient's age to complete this topic Pneumococcal vaccine <65 Aged Out No longer eligible based on patient's age to complete this topic Procedures Procedure Name Priority Date/Time Associated Diagnosis Comments HEPATITIS C ANTIBODY Routine Gen Lab 10/15/2016 11:16 PM CDT from Last 3 Months or Most Recently Relevant to Health Maintenance Results * Hepatitis C antibody (10/15/2016 11:16 PM CDT) Pathologist [facility] Hep C Ab Nonreactive Nonreactive [facility] Comment: Interpretive Data Positive and greyzone results should be confirmed by a molecular method. If positive or greyzone, a second separately collected sample should be submitted for Hepatitis C Virus RNA. Detection and Quantitation by Real-Time Reverse Horse Rancher-PCR.Current Interpretive data was last revised on 2016. Blood specimen (specimen) 10/15/2016 11:16 PM CDT 10/16/2016 12:00 AM CDT us Holden Yost MD LAB MICROBIOLOGY - GENER AL ORDERABLES Edited Result - Final MARYANNE B[facility]il[facility] Department [place] [address] from Last 3 Months or Most Recently Relevant to Health Maintenance Insurance [facility] Care Teams Podiatric Medicine Professor Relationship Specialty Start Date End Date No, Physician PCP - General 12/02/21
--- OUTSIDE RECORDS SUMMARY | 2024-06-13 18:44 | XMS_ITS | Referral Summary ---
Author Organization [facility] al Address [address] [place] [address] Care Team Providers Care Rest Room Matron Name Role Phone No, Physician Primary Care Provider [phone] Allergies No known active allergies Active Problems Problem Noted Date Diagnosed Date Trench foot of left lower extremity 06/02/2023 Social History Tobacco Use Types Packs/Day Years [...] on file Legal Sex Male 11:04 AM COMMISSIONING ENGINEER Gender Identity Not on file Sexual Orientation Not on file Last Filed Vital Signs Vital Sign Reading Time Taken Comments Blood Pressure 98/78 06/02/2023 4:30 PM COMMISSIONING ENGINEER Pulse 76 06/02/2023 4:30 PM COMMISSIONING ENGINEER Temperature 36.6 C (97.9 F) 06/02/2023 2:10 AM COMMISSIONING ENGINEER Respiratory Rate 16 06/01/2023 11:05 PM COMMISSIONING ENGINEER Oxygen Saturation 91% 06/02/2023 4:30 PM COMMISSIONING ENGINEER Inhaled Oxygen Concentration - - Weight 172.4 kg (380 lb) 06/01/2023 11:05 PM COMMISSIONING ENGINEER Height 193 cm (6' 4 ) 06/01/2023 11:05 PM COMMISSIONING ENGINEER Body Mass Index 46.26 06/01/2023 11:05 PM COMMISSIONING ENGINEER Plan of Treatment Not on file Procedures Procedure Name Priority Date/Time Associated Diagnosis Comments HEPATITIS C ANTIBODY Routine Gen Lab 10/15/2016 11:16 PM CDT from Last 3 Months or Most Recently Relevant to Health Maintenance Results * Hepatitis C antibody (10/15/2016 11:16 PM CDT) Hep C Ab Nonreactive Nonreactive MARYANNE GUSMAN Comment: Interpretive Data Positive and greyzone results should be confirmed by a molecular method. If positive or greyzone, a second separately collected sample should be submitted for Hepatitis C Virus RNA. Detection and Quantitation by Real-Time Reverse Sales Agent Food Vending Service-PCR.Current Interpretive data was last revised on 2016. Blood specimen (specimen) 10/15/2016 11:16 PM CDT 10/16/2016 12:00 AM CDT Holden Yost MD LAB MICROBIOLOGY - GENER AL ORDERABLES Edited Result - Final JEFFREYZOILA PEREZ [facility] Department [place] [address] from Last 3 Months or Most Recently Relevant to Health Maintenance Insurance [facility] Care Teams Rest Room Matron Relationship Specialty Start Date End Date No, Physician PCP - General 12/02/21
[2024-06-13 19:40] VITALS: BP 148/93; PULSE 95; RESP 20; TEMP 36.2; O2SAT 96
--- NOTE | 2024-06-13 20:08 | ED.EXTPRO ---
HPI - Extremity Problem General Chief complaint: Extremity Problem,Nontraumatic <Desiree Alfred APRN - Last Filed: 06/13/24 20:13> Stated complaint: L arm pain, lower extremity pain <Desiree Alfred APRN - Last Filed: 06/13/24 20:13> Time Seen by Provider: 06/13/24 20:00 <Desiree Alfred APRN - Last Filed: 06/13/24 20:13> Focused HPI: Patient is a 43-year-old male who presents to the ER with concerns right knee pain, left arm pain, and left-sided numbness/tingling. He reports the right knee pain has been going on ?for long time, but the left pain started Monday night, 2 1/2 days ago. Patient reports he has a history of strokes, so he is worried he is having another. He reports he has been taking Aleve at home without much relief. Patient denies any injury to the area. He denies any headaches, chest pain, shortness a breath, recent fevers. GENERAL: Well-appearing, obese, and in no acute distress. HEAD: Normocephalic, atraumatic. CHEST: Mild bilateral upper lobe wheezing upon auscultation. ?No respiratory distress. HEART: Regular rate and rhythm.? NEURO: ?Alert and oriented x3. Patient screened in triage and initial orders placed.? ?Additional care and disposition to be based upon?diagnostic testing and treatment. <Desiree Alfred APRN - Last Filed: 06/13/24 20:13> Related Data Allergies/Adverse reactions: Allergies Allergy/AdvReac Type Severity Reaction Status Date / Time peanut Allergy Mild Unknown Verified 10/10/20 12:05 BUBBLE GUM Allergy Mild Swelling Uncoded 10/10/20 12:05 IVP DYE Allergy Mild Unknown Uncoded 10/10/20 12:05 IV DYE, IODINE CONTAINING Allergy Unknown Unknown Uncoded 10/10/20 12:05 CONTRAST <Desiree Alfred APRN - Last Filed: 06/13/24 20:13> Review of Systems Review of Systems: All systems are reviewed and are negative unless stated otherwise in the HPI. <Tacos Finn MD - Last Filed: 06/14/24 00:15> CATALINA Past Medical History Medical History: Medical History Frequent headaches Arthritis Asthma Allergies <Desiree Alfred KNITTER MECHANIC - Last Filed: 06/13/24 20:13> Surgical History Surgical History: Surgical History No pertinent past surgical history <Desiree Alfred KNITTER MECHANIC - Last Filed: 06/13/24 20:13> Family History Family History: Family History Mother No problems noted. Father Asthma Diabetes mellitus Hypertension Cerebrovascular accident Heart disease Depression Alcohol abuse Anxiety <Desiree Alfred KNITTER MECHANIC - Last Filed: 06/13/24 20:13> Social History Social History: Social History Smoking status: Current every day smoker Additional smoking assessment comments: 1.5 ppd Alcohol intake: never Substance use: never Living arrangements: alone Gender identity (if verbalized by the patient): Male Spiritual care concerns: No <Desiree Alfred, KNITTER MECHANIC - Last Filed: 06/13/24 20:13> Exam Narrative: General: Alert, awake, afebrile, in no acute distress. HEENT: PERRL, no rhinorrhea, no post nasal drip, oropharynx clear. Neck: Trachea midline, no JVD, no lymphadenopathy. Cardiovascular: Regular rate and rhythm, no murmurs, rubs or gallops, no peripheral edema. Respiratory: Clear to auscultation bilaterally, no tachypnea, no wheezing, no rhonchi, no rubs, no respiratory distress. Abdomen: Soft, nontender, nondistended, no rebound, no guarding, no peritoneal signs. Musculoskeletal: No joint swelling or deformity, normal muscle tone. Skin: No rashes or petechia, no signs of infection. Psychiatric: Alert and oriented, normal behavior and judgment for situation. Neurological: Alert and oriented to person, place, and time. Follows all commands. 5/5 motor strength in the bilateral upper and lower extremity, patient does report some numbness to his left upper extremity extending to shoulder joint in comparison to the right upper extremity, cranial nerves 2-12 grossly intact. No focal deficits, speech is clear and fluent. <Tacos Finn MD - Last Filed: 06/14/24 00:15> Course Vital Signs Vital signs: Vital Signs Temperature 97.2 F L 06/13/24 19:40 Pulse Rate 95 06/13/24 19:40 Respiratory Rate 20 06/13/24 19:40 Blood Pressure 148/93 H 06/13/24 19:40 Pulse Oximetry 96 06/13/24 19:40 Oxygen Delivery Room Air 06/13/24 19:40 Temperature 97.9 F 06/13/24 22:57 Pulse Rate 98 06/13/24 22:57 Respiratory Rate 22 H 06/13/24 22:57 Blood Pressure 167/93 H 06/13/24 22:57 Pulse Oximetry 94 06/13/24 22:57 Oxygen Delivery Room Air 06/13/24 19:40 <Desiree Alfred APRN - Last Filed: 06/13/24 20:13> Vital Signs Temperature 97.2 F L 06/13/24 19:40 Pulse Rate 95 06/13/24 19:40 Respiratory Rate 20 06/13/24 19:40 Blood Pressure 148/93 H 06/13/24 19:40 Pulse Oximetry 96 06/13/24 19:40 Oxygen Delivery Room Air 06/13/24 19:40 Temperature 97.9 F 06/13/24 22:57 Pulse Rate 98 06/13/24 22:57 Respiratory Rate 22 H 06/13/24 22:57 Blood Pressure 167/93 H 06/13/24 22:57 Pulse Oximetry 94 06/13/24 22:57 Oxygen Delivery Room Air 06/13/24 19:40 <Tacos Finn MD - Last Filed: 06/14/24 00:15> MDM - Extremity (Nontraumatic) MDM Narrative Medical decision making narrative: The patient was evaluated by myself in the emergency department. History is obtained from patient who is an independent historian and physical exam was performed. External medical records were reviewed at this time. Imaging studies obtained included CT brain without IV contrast x-rays of the right tib-fib, right knee, left elbow and left forearm which was independently interpreted by me revealing: IMPRESSION: 1. Normal brain. 2. Moderate right knee osteoarthritis. 3. Small right knee joint effusion. 4. Normal left elbow. 5. Normal left forearm. At this time, patient was informed of these findings at bedside. He was informed that if his left arm numbness was due to a stroke, given that this was 2 and half days ago, we would see evidence of it on the CT brain. Patient was also informed that stroke symptoms usually do not present with pain. Given the patient's left forearm pain, patient was informed that his x-rays revealed no fractures. If patient continued to have pain, he was instructed to follow up with his primary care physician to obtain an ultrasound of his left forearm to evaluate for any DVT. Regarding the left upper extremity numbness, patient was informed this could be due to a pinched and he was informed that if he continues to have the symptoms he may need an MRI of his neck to evaluate for any nerve compression. Patient was also informed that if he continues to have right knee pain he may need an MRI of the right knee for further evaluation of any meniscal or ligamentous injury and patient is agreeable with this plan. Differential diagnosis considerations include fractures, dislocations, musculoskeletal strain. Comorbidities impacting this visit include none. I have evaluated and discussed social determinants of health with the patient that could potentially impact subsequent diagnosis and treatment plans. On repeat assessment of the patient, reevaluation revealed that the patient is doing well and is in no acute distress. Patient symptoms have remained stable since he arrived to our emergency department. Repeat vital signs were all reviewed and noted to be stable. Differential diagnosis and treatment plan were discussed with the patient at bedside. Patient agrees with discussion and after shared medical decision making agrees with discharge. All questions were answered to the patient's satisfaction. Patient will follow up with his PCP in 3-5 days. Patient was provided with strict return precautions and instructed to return to the emergency department if any new or worsening symptoms develop. The patient was discharged in stable condition. <Tacos Finn MD - Last Filed: 06/14/24 00:15> Discharge Plan Discharge Clinical Impression: Acute internal derangement of right knee, Left forearm pain, Arm paresthesia, left <Desiree Alfred APRN - Last Filed: 06/13/24 20:13> Patient Disposition: Home, Self-Care <Desiree Alfred APRN - Last Filed: 06/13/24 20:13> Condition: Stable <Desiree Alfred APRN - Last Filed: 06/13/24 20:13> Instructions: Antibiotic Form, Knee Pain (ED), Paracentesis (DC) <Desiree Alfred APRN - Last Filed: 06/13/24 20:13> Additional Instructions: Please follow-up with your primary care physician within the next 3-5 days. You informed that you may need to obtain MRIs of your neck and right knee for further evaluation of your symptoms. In addition to this, if he continued to have left forearm pain you may need an ultrasound of your left forearm to evaluate for any DVT. All of these can be ordered by your primary care physician and obtained as an outpatient. Return to the ED if any new or worsening symptoms develop. <Desiree Alfred APRN - Last Filed: 06/13/24 20:13> Patient Language: Uruguayan <Desiree Alfred APRN - Last Filed: 06/13/24 20:13> Prescriptions: No Action tramadol 50 mg tablet 50 mg PO TID PRN (Reason: pain) Qty: 15 0RF penicillin V potassium 500 mg tablet 500 mg PO Q6H Qty: 28 0RF <Desiree Alfred APRN - Last Filed: 06/13/24 20:13> Follow-up/Referrals: Markus Clinton, [Primary Care Provider] - 3 Days <Desiree Alfred APRN - Last Filed: 06/13/24 20:13> Time of Disposition: 00:15 <Desiree Alfred APRN - Last Filed: 06/13/24 20:13> 00:15 <Tacos Finn MD - Last Filed: 06/14/24 00:15>
[2024-06-13 22:57] VITALS: BP 167/93; PULSE 98; RESP 22; TEMP 36.6; O2SAT 94
[2024-06-13] MEDS: ACETAMINOPHEN 500 MG TABLET 1000 MG PO (22:59)
--- OUTSIDE RECORDS SUMMARY | 2024-06-14 00:13 | XMS_ITS | Clinical Summary ---
Author Organization [facility] Address [address] [place] [address] Care Team Providers Care Forensic Medical Examiner Name Role Phone No, Physician Primary Care Provider [phone] Allergies No known active allergies Active Problems [...] on file Legal Sex Male 11:04 AM LEAD TECHNICAL WRITER Gender Identity Not on file Sexual Orientation Not on file Obstetrics History Last Filed Vital Signs Vital Sign Reading Time Taken Comments Blood Pressure 98/78 06/02/2023 4:30 PM LEAD TECHNICAL WRITER Pulse 76 06/02/2023 4:30 PM LEAD TECHNICAL WRITER Temperature 36.6 C (97.9 F) 06/02/2023 2:10 AM LEAD TECHNICAL WRITER Respiratory Rate 16 06/01/2023 11:05 PM LEAD TECHNICAL WRITER Oxygen Saturation 91% 06/02/2023 4:30 PM LEAD TECHNICAL WRITER Inhaled Oxygen Concentration - - Weight 172.4 kg (380 lb) 06/01/2023 11:05 PM LEAD TECHNICAL WRITER Height 193 cm (6' 4 ) 06/01/2023 11:05 PM LEAD TECHNICAL WRITER Body Mass Index 46.26 06/01/2023 11:05 PM LEAD TECHNICAL WRITER Plan of Treatment Health Maintenance Due Date [...] C antibody (10/15/2016 11:16 PM CDT) Pathologist [facility] Hep C Ab Nonreactive Nonreactive [facility] Comment: Interpretive Data Positive and greyzone results should be confirmed by a molecular method. If positive or greyzone, a second separately collected sample should be submitted for Hepatitis C Virus RNA. Detection and Quantitation by Real-Time Reverse In Tube Conversion Technician-PCR.Current Interpretive data was last revised on 2016. Blood specimen (specimen) 10/15/2016 11:16 PM CDT 10/16/2016 12:00 AM CDT us Holden Yost MD LAB MICROBIOLOGY - GENER AL ORDERABLES Edited Result - Final MARYANNE BJShilpa [facility] Department [place] [address] from Last 3 Months or Most Recently Relevant to Health Maintenance Insurance [facility] Care Teams Forensic Medical Examiner Relationship Specialty Start Date End Date No, Physician PCP - General 12/02/21
--- OUTSIDE RECORDS SUMMARY | 2024-06-14 00:13 | XMS_ITS | Referral Summary ---
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 Gender Identity Not on file Sexual Orientation Not on file Last Filed Vital Signs Vital Sign Reading Time Taken Comments Blood Pressure 98/78 06/02/2023 4:30 PM TELEVISION JOURNALIST Pulse 76 06/02/2023 4:30 PM TELEVISION JOURNALIST Temperature 36.6 C (97.9 F) 06/02/2023 2:10 AM TELEVISION JOURNALIST Respiratory Rate 16 06/01/2023 11:05 PM TELEVISION JOURNALIST Oxygen Saturation 91% 06/02/2023 4:30 PM TELEVISION JOURNALIST Inhaled Oxygen Concentration - - Weight 172.4 kg (380 lb) 06/01/2023 11:05 PM TELEVISION JOURNALIST Height 193 cm (6' 4 ) 06/01/2023 11:05 PM TELEVISION JOURNALIST Body Mass Index 46.26 06/01/2023 11:05 PM TELEVISION JOURNALIST Plan of Treatment Not on file Procedures [...] RNA. Detection and Quantitation by Real-Time Reverse Leather Belt Loop Cutter-PCR.Current Interpretive data was last revised on 2016. Blood specimen (specimen) 10/15/2016 11:16 PM CDT 10/16/2016 12:00 AM CDT Holden Yost MD LAB MICROBIOLOGY - GENER AL ORDERABLES Edited Result - Final JEFFREYZOILA PEREZ [facility] Department [place] [address] from Last 3 Months or Most Recently Relevant to Health Maintenance Insurance [facility] Care Teams Industrial Pharmacist Relationship Specialty Start Date End Date No, Physician PCP - General 12/02/21
--- OUTSIDE RECORDS SUMMARY | 2024-06-14 00:13 | XMS_ITS | Patient Health Summary ---
Author Organization [facility] Address [address] [place] [address] Care Team Providers Care Administrative Support Assoc Name Role Phone Unavailable Primary Care Provider Unavailabl e Note from [facility],non-owned Affiliates and Associated Physician Practices is amultiple site organization consisting of ambulatory clinics and hospital sitesin [place], [place], [place] and [place]. This disclosure is being madepursuant to the Care Everywhere program and may not contain all information available regarding this patient. Last updated 18.[facility] Allergies * Contrast-Iodinated Agents For Ct/Other(Other) Medications [...] (360 lb 1 oz) 06/29/2018 9:00 PM PHARMACY OPERATIONS MANAGER Height 195.6 cm (6' 5 ) 06/29/2018 9:00 PM PHARMACY OPERATIONS MANAGER Body Mass Index 42.7 06/29/2018 9:00 PM PHARMACY OPERATIONS MANAGER Procedures * LIPID PROFILE(Performed 07/01/2018) * HEMOGLOBIN [...] 4.4 - 6.3 % 07/02/2018 12:07 PM [facility] Estimated Average Glucose 120 mg/dL 07/02/2018 12:07 PM [facility] Comment: HbA1c Interpretation: Treatment target values recommended by ADA and other clinical organizations should be used to evaluate metabolic control in patients. Treatment Target Values: Normal : < 5.7% Pre-diabetes: 5.7-6.4% Diabetes: Equal to or greater than 6.5% Reference: [place] [employer] Standards of Care in Diabetes -2014 In patients 70 years and older consider HbA1c target range of 7.0-7.5% Reference: Diabetes Mellitus in Older People: Position Statement on behalf of the International Association of Gerontology and Geriatrics (IAGG), the Diabetes Working Alliance Party for Older People (EDWPOP), and the International Task Force of Experts in Diabetes. Maksim Pimentel et al. J [place] [employer]. 2012 Test results diagnostic [...] Equal to or greater than 6.5% Reference: [place] Diabetes Association Standards of Care in Diabetes -2014 In patients 70 years and older consider HbA1c target range of 7.0-7.5% Reference: Diabetes Mellitus in Older People: Position Statement on behalf of the International Association of Gerontology and Geriatrics (IAGG), the Diabetes Working Alliance Party for Older People (EDWPOP), and the International Task Force of Experts in Diabetes. Maksim Pimentel, et al. J [place] [employer]. 2012 Test results diagnostic of diabetes should be repeated for confirmation. The Sebia Capillary 2 assay for the measurement of HbA1c is a National Glycohemoglobin Standardization Program (NGSP)certified method. Blood BLOOD SPECIMEN / Unknown Venipuncture / Unknown 07/01/2018 6:34 AM CDT 07/01/2018 6:39 AM CDT Elsa Morejon MD LAB - CHEMISTRY JESUS MCKOY [facility] Organization Address City/State/ZIP Co de Phone Number [address] [phone] * (ABNORMAL) LIPID PROFILE (07/01/2018 6:34 AM CDT) Cholesterol Total 184 <200 mg/dL 07/01/2018 7:05 AM [facility] HDL 31(L) >40 mg/dL 07/01/2018 7:05 AM [facility] Comment: ATP III Classification of HDL Cholesterol: <40 mg/dL: Considered a major risk factor. >60 mg/dL: Considered a negative risk factor. LDL Calculated 127(H) <100 mg/dL 07/01/2018 7:05 AM [facility] Comment: ATP III Classification of LDL Cholesterol: <100 mg/dL: Optimal 100 - 129 mg/dL: Near Optimal/Above Optimal 130 - 159 mg/dL: Borderline High 160 - 189 mg/dL: High >190 mg/dL: Very High Triglycerides 130 <150 mg/dL 07/01/2018 7:05 AM CDT [facility] Comment: ATP III Classification of Triglycerides: <150 mg/dL: Normal 150 - 199 mg/dL: Borderline High 200 - 400 mg/dL: High >500 mg/dL: Very High Blood BLOOD SPECIMEN / Unknown Venipuncture / Unknown 07/01/2018 6:34 AM CDT 07/01/2018 6:39 AM CDT Elsa Morejon MD LAB - CHEMISTRY JESUS MCKOY [address] [phone] * CT HEAD WO CONTRAST (06/29/2018 4:48 PM PHARMACY OPERATIONS MANAGER) Anatomical Region Laterality Modality Head Computed Tomogra phy 06/29/2018 5:12 PM PHARMACY OPERATIONS MANAGER Impressions 06/30/2018 9:12 AM PHARMACY OPERATIONS MANAGER IMPRESSION: 1. No acute intracranial process. I, Dr. JANET LARSON M.D. have personally reviewed and interpreted this examination/study. This report was electronically signed by JANET LARSON M.D. on 06/30/2018 9:12 AM . Narrative 06/30/2018 9:12 AM PHARMACY OPERATIONS MANAGER EXAMINATION: Computed tomography (CT) of the head [...] effect or midline shift is seen. The ficth-white matter differentiation is normal. Other than mild [...] * HIV-1 HIV-2 ANTIGEN/ANTIBODY (06/29/2018 4:34 PM PHARMACY OPERATIONS MANAGER) HIV Antigen/Antibod y 1 & 2 Non-reacti ve Non-react belinda 06/29/2018 5:17 PM PHARMACY OPERATIONS MANAGER [facility] Comment: Neither HIV-1 p24 Antigen nor HIV-1/HIV-2 Antibodies are detected. Blood BLOOD SPECIMEN / Unknown Venipuncture / Unknown 06/29/2018 4:34 PM PHARMACY OPERATIONS MANAGER 06/29/2018 4:34 PM PHARMACY OPERATIONS MANAGER Elia Caba MD LAB - HEMATOLOGY OR DERABLES [address] [phone] * SYPHILIS ANTIBODY CASCADING REFLEX (06/29/2018 4:34 PM PHARMACY OPERATIONS MANAGER) Treponema pallidum Antibody Non-react belinda Non-react belinda 06/29/2018 5:17 PM PHARMACY OPERATIONS MANAGER [facility] Comment: No Laboratory evidence of syphilis infection. Note: Circulating antibodies may be low or undetectable in early infection. If recent exposure is suspected, re-draw sample in 2-4 weeks and repeat testing. Blood BLOOD SPECIMEN / Unknown Venipuncture / Unknown 06/29/2018 4:34 PM PHARMACY OPERATIONS MANAGER 06/29/2018 4:34 PM PHARMACY OPERATIONS MANAGER Elia Caba MD LAB - SEROLOGY JESUS MCKOY [facility] Organization Address City/State/ZIP Co de Phone Number [facility] [address] [place] [address] * XR SKULL 4VW OR MORE (06/29/2018 1:36 PM PHARMACY OPERATIONS MANAGER) Anatomical Region Laterality Modality Head Radiographic Richelle ging 06/29/2018 1:51 PM PHARMACY OPERATIONS MANAGER Impressions 06/29/2018 1:56 PM PHARMACY OPERATIONS MANAGER IMPRESSION: No evidence of a radiopaque foreign body. Dictated by Gerald Boston M.D. (president college or university). I, Dr. LARS CABALLERO have personally reviewed and interpreted this examination/study. This report was electronically signed by LARS CABALLERO on 06/29/2018 1:56 PM . Narrative 06/29/2018 1:56 PM PHARMACY OPERATIONS MANAGER Exam: XR SKULL 4VW OR MORE Date: [...] foreign body. Dictated by Gerald Boston M.D. (president college or university). IDr. LARS have personally reviewed and interpreted this examination/study. This report was electronically signed by LARS CABALLERO on 06/29/2018 1:56 PM . Aicha Julien MD DIAGNOSTIC IMAGING O RDERABLES * (ABNORMAL) URINALYSIS W/MICROSCOPIC NO CULTURE (06/29/2018 9:22 AM [facility]) Color UA Straw Straw, Yellow, Colorless 06/29/2018 9:28 AM [facility] Clarity UA Clear Clear, Slt Cloudy 06/29/2018 9:28 AM [facility] Specific Trenary UA 1.003(L) 1.005 - 1.030 06/29/2018 9:28 AM [facility] pH UA 6.0 5.0 - 8.0 pH 06/29/2018 9:28 AM [facility] Protein UA Negative Negative mg/dL 06/29/2018 9:28 AM [facility] Glucose UA Negative Negative mg/dL 06/29/2018 9:28 AM [facility] Ketone UA Negative Negative mg/dL 06/29/2018 9:28 AM [facility] Bilirubin UA Negative Negative mg/dL 06/29/2018 9:28 AM [facility] Blood UA 1+(A) Negative 06/29/2018 9:28 AM [facility] Nitrite UA Negative Negative 06/29/2018 9:28 AM [facility] Leukocyte Esterase Negative Negative 06/29/2018 9:28 AM [facility] Urobilinogen UA Negative Negative mg/dL 06/29/2018 9:28 AM [facility] RBC UA 0-2 None Seen, 0-2, 3-5 /HPF 06/29/2018 9:28 AM [facility] WBC UA 0-5 None Seen, 0-5 /HPF 06/29/2018 9:28 AM [facility] Bacteria UA Trace None, Trace /HPF 06/29/2018 9:28 AM [facility] Squamous Epithelial Cells UA 0-2 None Seen, 0-2 /HPF 06/29/2018 9:28 AM [facility] Urine URINE SPECIMEN OBTAINED BY CLEAN CATCH PROCEDURE / Unknown Collection / Unknown 06/29/2018 9:22 AM PHARMACY OPERATIONS MANAGER 06/29/2018 9:22 AM [facility] Debra Ceron PA-C LAB - URINAL YSIS ORDERABLES [facility] [address] [place] [address] * DRUG SCREEN TOX URINE PANEL (06/29/2018 9:22 AM [facility]) Amphetamines Screen Urine Negative Negative: < 1000 ng/mL 06/29/2018 9:35 AM [facility] Barbiturates Screen Urine Negative Negative: < 200 ng/mL 06/29/2018 9:35 AM [facility] Benzodiazepine Screen Urine Negative Negative: < 200 ng/mL 06/29/2018 9:35 AM [facility] Opiates Urine Negative Negative: < 300 ng/mL 06/29/2018 9:35 AM [facility] Cocaine Metabolites Urine Negative Negative: < 300 ng/mL 06/29/2018 9:35 AM [facility] Phencyclidine Screen Urine Negative Negative: < 25 ng/ml 06/29/2018 9:35 AM [facility] Cannabinoids Screen Urine Negative Negative: <50 ng/mL 06/29/2018 9:35 AM [facility] Methadone Screen Urine Negative Negative: < 300 ng/mL 06/29/2018 9:35 AM [facility] Urine URINE / Unknown Collection / Unknown 06/29/2018 9:22 AM [facility] 06/29/2018 9:22 AM [facility] - 06/29/2018 9:35 AM [facility] The Urine Toxicology Screening Panel does not screen for Propoxyphene, Meprobamate, Carisoprodol, Trazodone, [id number] medications and/or volatiles (Acetone, Isopropanol, Methanol or Ethylene Glycol). Ethanol, Salicylate, Acetaminophen, Tricyclic Antidepressants and several therapeutic drugs may be individually assayed in serum or plasma specimen. Toxicology testing by the [facility] is an aid to medical diagnosis and treatment of patients. No documented chain of custody was maintained. Results are intended to be used for clinical purposes only. Debra Ceron PA-C LAB - URINE CHEMISTRY ORDERABLES [facility] [address] [phone] * (ABNORMAL) CBC W AUTO DIFFERENTIAL (06/29/2018 8:46 AM [facility]) WBC 11.3(H) 3.5 - 10.5 10 3/uL 06/29/2018 8:50 AM [facility] RBC 5.69 4.30 - 5.70 10 6/uL 06/29/2018 8:50 AM [facility] Hemoglobin 17.1 13.5 - 17.5 g/dL 06/29/2018 8:50 AM [facility] Hematocrit 50.4(H) 39.0 - 50.0 % 06/29/2018 8:50 AM [facility] MCV 88.6 81.0 - 97.0 fL 06/29/2018 8:50 AM [facility] MCH 30.1 28.0 - 34.0 pg 06/29/2018 8:50 AM [facility] MCHC 33.9 32.0 - 36.0 g/dL 06/29/2018 8:50 AM [facility] Platelet Count 342 150 - 400 10 3/uL 06/29/2018 8:50 AM [facility] RDW-SD 43.3 36.0 - 50.0 fL 06/29/2018 8:50 AM [facility] RDW-CV 13.3 11.2 - 14.8 % 06/29/2018 8:50 AM [facility] MPV 10.0 9.3 - 12.8 fL 06/29/2018 8:50 AM [facility] nRBC Absolute 0.00 0 10 3/uL 06/29/2018 8:50 AM [facility] nRBC Auto 0.0 0 /100 WBC 06/29/2018 8:50 AM [facility] Neutrophils % 75.6(H) 35.0 - 70.0 % 06/29/2018 8:50 AM [facility] Lymphocytes % 15.3(L) 19.7 - 55.1 % 06/29/2018 8:50 AM [facility] Monocytes % 7.6 3.0 - 15.0 % 06/29/2018 8:50 AM [facility] Eosinophils % 0.7 0.0 - 6.0 % 06/29/2018 8:50 AM [facility] Basophil % 0.4 0.0 - 1.5 % 06/29/2018 8:50 AM [facility] Neutrophils Absolute 8.5(H) 1.6 - 7.0 10 3/uL 06/29/2018 8:50 AM [facility] Lymphocyte Absolute 1.7 0.8 - 2.9 10 3/uL 06/29/2018 8:50 AM [facility] Monocytes Absolute 0.86(H) 0.14 - 0.66 10 3/uL 06/29/2018 8:50 AM [facility] Eosinophils Absolute 0.08 0.00 - 0.45 10 3/uL 06/29/2018 8:50 AM [facility] Basophils Absolute 0.04 0.00 - 0.06 10 3/uL 06/29/2018 8:50 AM [facility] Immature Granulocytes % 0.4 0.0 - 1.0 % 06/29/2018 8:50 AM [facility] Blood BLOOD SPECIMEN / Unknown Venipuncture / Unknown 06/29/2018 8:46 AM [facility] 06/29/2018 8:46 AM [facility] Debra Ceron PA-C LAB - HEMATO LOGY ORDERABLES [address] [phone] * (ABNORMAL) COMPREHENSIVE METABOLIC PANEL (06/29/2018 8:46 AM [facility]) BUN 6(L) 7 - 26 mg/dL 06/29/2018 9:04 AM [facility] Creatinine 0.9 0.6 - 1.2 mg/dL 06/29/2018 9:04 AM [facility] Sodium 137 136 - 145 mmol/L 06/29/2018 9:04 AM [facility] Potassium 3.9 3.5 - 4.5 mmol/L 06/29/2018 9:04 AM [facility] Chloride 103 98 - 107 mmol/L 06/29/2018 9:04 AM [facility] CO2 22 22 - 29 mmol/L 06/29/2018 9:04 AM [facility] Glucose 109 70 - 115 mg/dL 06/29/2018 9:04 AM [facility] Calcium 9.5 8.4 - 10.2 mg/dL 06/29/2018 9:04 AM [facility] Protein Total 8.4(H) 6.0 - 8.3 g/dL 06/29/2018 9:04 AM [facility] Albumin 3.9 3.4 - 5.0 g/dL 06/29/2018 9:04 AM [facility] Bilirubin Total 0.8 0.2 - 1.2 mg/dL 06/29/2018 9:04 AM [facility] Alkaline Phosphatase 81 40 - 150 Units/L 06/29/2018 9:04 AM [facility] ALT 41 0 - 55 Units/L 06/29/2018 9:04 AM [facility] AST 21 5 - 34 Units/L 06/29/2018 9:04 AM [facility] Anion Gap 16 8 - 18 06/29/2018 9:04 AM [facility] BUN/Creatinine Ratio 7 7 - 23 06/29/2018 9:04 AM [facility] Osmolality Calculated 282 270 - 300 mOsm/kg 06/29/2018 9:04 AM [facility] Albumin/Globulin Ratio 0.9(L) 1.1 - 2.3 06/29/2018 9:04 AM [facility] eGFR >60 >60 mL/min/1.7 3 m2 06/29/2018 9:04 AM [facility] Blood BLOOD SPECIMEN / Unknown Venipuncture / Unknown 06/29/2018 8:46 AM PHARMACY OPERATIONS MANAGER 06/29/2018 8:46 AM [facility] Debra Ceron PA-C LAB - CHEMIS TRY ORDERABLES [address] [phone] * ALCOHOL ETHYL BLOOD (06/29/2018 8:46 AM [facility]) Interpretation Ethanol None Detected None Detected mg/dL 06/29/2018 9:04 AM [facility] Comment: Ethanol levels less than 10 mg/dL are resulted as None detected . Blood BLOOD SPECIMEN / Unknown Venipuncture / Unknown 06/29/2018 8:46 AM PHARMACY OPERATIONS MANAGER 06/29/2018 8:46 AM PHARMACY OPERATIONS MANAGER Milton Esquivel MD LAB - CHEMISTRY JESUS MCKOY [address] [phone] * TSH (06/29/2018 8:46 AM PHARMACY OPERATIONS MANAGER) TSH 1.098 0.350 - 4.940 uIU/mL 06/29/2018 9:28 AM PHARMACY OPERATIONS MANAGER [facility] Blood BLOOD SPECIMEN / Unknown Venipuncture / Unknown 06/29/2018 8:46 AM PHARMACY OPERATIONS MANAGER 06/29/2018 8:46 AM PHARMACY OPERATIONS MANAGER Debra Ceron PA-C LAB - CHEMIS TRY ORDERABLES [address] [phone]
--- OUTSIDE RECORDS SUMMARY | 2024-06-14 00:13 | XMS_ITS | Referral Summary ---
Author Organization [facility] Address [address] [place] [address] Care Team Providers Care Court Abstractor Name Role Phone Unavailable Primary Care Provider Unavailabl e Source Comments [facility],non-owned Affiliates and Associated Physician Practices is amultiple site organization consisting of ambulatory clinics and hospital sitesin [place], [place], [place] and [place]. This disclosure is being madepursuant to the Care Everywhere program and may not contain all information available regarding this patient. Last updated 18.[facility] Allergies Active Allergy Reactions Criticality Noted Date [...] (360 lb 1 oz) 06/29/2018 9:00 PM CONCRETE TECHNICIAN Height 195.6 cm (6' 5 ) 06/29/2018 9:00 PM CONCRETE TECHNICIAN Body Mass Index 42.7 06/29/2018 9:00 PM CONCRETE TECHNICIAN Functional Status Functional Status Response Date of [...] HIV-1 HIV-2 ANTIGEN/ANTIBODY STAT 06/29/2018 4:34 PM CONCRETE TECHNICIAN from Last 3 Months or Most Recently Relevant to Health Maintenance Results * (ABNORMAL) LIPID PROFILE (07/01/2018 6:34 AM CDT) Cholesterol Total 184 <200 mg/dL 07/01/2018 7:05 AM [facility] HDL 31(L) >40 mg/dL 07/01/2018 7:05 AM [facility] Comment: ATP III Classification of HDL Cholesterol: <40 mg/dL: Considered a major risk factor. >60 mg/dL: Considered a negative risk factor. LDL Calculated 127(H) <100 mg/dL 07/01/2018 7:05 AM [facility] Comment: ATP III Classification of LDL Cholesterol: <100 mg/dL: Optimal 100 - 129 mg/dL: Near Optimal/Above Optimal 130 - 159 mg/dL: Borderline High 160 - 189 mg/dL: High >190 mg/dL: Very High Triglycerides 130 <150 mg/dL 07/01/2018 7:05 AM [facility] Comment: ATP III Classification of Triglycerides: <150 mg/dL: Normal 150 - 199 mg/dL: Borderline High 200 - 400 mg/dL: High >500 mg/dL: Very High Blood BLOOD SPECIMEN / Unknown Venipuncture / Unknown 07/01/2018 6:34 AM CDT 07/01/2018 6:39 AM CDT Elsa Morejon MD LAB - CHEMISTRY JESUS MCKOY [address] [phone] * HIV-1 HIV-2 ANTIGEN/ANTIBODY (06/29/2018 4:34 PM CONCRETE TECHNICIAN) HIV Antigen/Antibod y 1 & 2 Non-reacti ve Non-react belinda 06/29/2018 5:17 PM CONCRETE TECHNICIAN [facility] Comment: Neither HIV-1 p24 Antigen nor HIV-1/HIV-2 Antibodies are detected. Blood BLOOD SPECIMEN / Unknown Venipuncture / Unknown 06/29/2018 4:34 PM CONCRETE TECHNICIAN 06/29/2018 4:34 PM CONCRETE TECHNICIAN Elia Caba MD LAB - HEMATOLOGY OR DERABLES [address] [phone] from Last 3 Months or Most Recently Relevant to Health Maintenance Advance Directives * Full Code (Latest Code Status on File) Date Activated Date Inactivated Comments 06/29/2018 8:50 PM 07/02/2018 3:59 PM * Full Code Date Activated Date Inactivated Comments 06/29/2018 12:23 PM 06/29/2018 8:50 PM
--- OUTSIDE RECORDS SUMMARY | 2024-06-14 00:13 | XMS_ITS | Clinical Summary ---
Author Organization [facility] Address [address] [place] [address] Care Team Providers Care Voice Engineer Name Role Phone Unavailable Primary Care Provider Unavailabl e Source Comments [facility],non-owned Affiliates and Associated Physician Practices is amultiple site organization consisting of ambulatory clinics and hospital sitesin [place], [place], [place] and [place]. This disclosure is being madepursuant to the Care Everywhere program and may not contain all information available regarding this patient. Last updated 18.[facility] Allergies Active Allergy Reactions Criticality Noted Date [...] (360 lb 1 oz) 06/29/2018 9:00 PM AIRCRAFT ACCESSORIES MECHANIC Height 195.6 cm (6' 5 ) 06/29/2018 9:00 PM AIRCRAFT ACCESSORIES MECHANIC Body Mass Index 42.7 06/29/2018 9:00 PM AIRCRAFT ACCESSORIES MECHANIC Plan of Treatment Health Maintenance Due Date [...] HIV-1 HIV-2 ANTIGEN/ANTIBODY STAT 06/29/2018 4:34 PM AIRCRAFT ACCESSORIES MECHANIC from Last 3 Months or Most Recently Relevant to Health Maintenance Results * (ABNORMAL) LIPID PROFILE (07/01/2018 6:34 AM CDT) Cholesterol Total 184 <200 mg/dL 07/01/2018 7:05 AM CDT [facility] HDL 31(L) >40 mg/dL 07/01/2018 7:05 AM [facility] Comment: ATP III Classification of HDL Cholesterol: <40 mg/dL: Considered a major risk factor. >60 mg/dL: Considered a negative risk factor. LDL Calculated 127(H) <100 mg/dL 07/01/2018 7:05 AM [facility] Comment: ATP III Classification of LDL Cholesterol: <100 mg/dL: Optimal 100 - 129 mg/dL: Near Optimal/Above Optimal 130 - 159 mg/dL: Borderline High 160 - 189 mg/dL: High >190 mg/dL: Very High Triglycerides 130 <150 mg/dL 07/01/2018 7:05 AM [facility] Comment: ATP III Classification of Triglycerides: <150 mg/dL: Normal 150 - 199 mg/dL: Borderline High 200 - 400 mg/dL: High >500 mg/dL: Very High Blood BLOOD SPECIMEN / Unknown Venipuncture / Unknown 07/01/2018 6:34 AM CDT 07/01/2018 6:39 AM CDT Elsa Morejon MD LAB - CHEMISTRY JESUS MCKOY Performing Organization Address City/[facility]/ZIP Co de Phone Number [address] [phone] * HIV-1 HIV-2 ANTIGEN/ANTIBODY (06/29/2018 4:34 PM AIRCRAFT ACCESSORIES MECHANIC) HIV Antigen/Antibod y 1 & 2 Non-reacti ve Non-react belinda 06/29/2018 5:17 PM AIRCRAFT ACCESSORIES MECHANIC [facility] Comment: Neither HIV-1 p24 Antigen nor HIV-1/HIV-2 Antibodies are detected. Blood BLOOD SPECIMEN / Unknown Venipuncture / Unknown 06/29/2018 4:34 PM AIRCRAFT ACCESSORIES MECHANIC 06/29/2018 4:34 PM AIRCRAFT ACCESSORIES MECHANIC Elia Caba MD LAB - HEMATOLOGY OR DERABLES Performing Organization Address City/[facility]/ZIP Co de Phone Number [address] [phone] from Last 3 Months or Most Recently Relevant to Health Maintenance Advance Directives * Full Code (Latest Code Status on File) Date Activated Date Inactivated Comments 06/29/2018 8:50 PM 07/02/2018 3:59 PM * Full Code Date Activated Date Inactivated Comments 06/29/2018 12:23 PM 06/29/2018 8:50 PM
== END 2024-06-14 01:28 | disposition home or self-care (01) ==
PROVIDERS: Emergency Provider Emergency Medicine; PCP Internal Medicine
DX: M23.91 Unspecified internal derangement of right knee (principal); M79.632 Pain in left forearm; R20.2 Paresthesia of skin; J45.909 Unspecified asthma, uncomplicated; F17.210 Nicotine dependence, cigarettes, uncomplicated
CPT/HCPCS: 70450; 73080; 73090; 73562; 73590; 99284; A9270

== ENCOUNTER 2024-08-11 04:09 | Emergency (ER) | payer OTHER, SELFPAY ==
[2024-08-11] VITALS (14 sets, daily range): BP systolic 133–142; BP diastolic 77–87; PULSE 85–99; RESP 15–24; TEMP 36.4; O2SAT 92–95
--- NOTE | ~2024-08-11 | CT_ITS ---
EXAMINATION: CT abdomen pelvis w con DATE: 08/11/2024 05:32 INDICATION: Right lower quadrant pain TECHNIQUE: Computed tomography (CT) of the abdomen and pelvis was performed without intravenous contr ast. The dose-length product was 1935.28 mGy-cm. Automated exposure control and iterative reconstruct ion technique were employed. COMPARISON: None. FINDINGS: Lung bases unremarkable. Heart size normal. No significant pleural or pericardial effusion. Small hiatal hernia. Gallstones. Focal fatty infiltration of the liver near the falciform ligament. The spleen, pancreas, adrenal glands and kidneys are unremarkable. Small fat-containing umbilical her shanelle. Normal appendix. Nonobstructive bowel gas pattern. Colonic diverticulosis without evidence for d iverticulitis. No abnormal pelvic masses or fluid collections. No significant vascular abnormality. N o lymphadenopathy. Moderate spondylosis at L5-S1. No acute osseous abnormality. No focal lytic or candice stic lesions. IMPRESSION: 1. No acute abdominal abnormality 2: Gallstones. No secondary findings to suggest cholecystitis. Reviewed, dictated and finalized at location A.
--- NOTE | ~2024-08-11 | XR_ITS ---
EXAMINATION: XR chest 2V 08/11/2024 05:09 INDICATION: Chest pain PROCEDURE: 2 view chest COMPARISON: 10/10/2020 FINDINGS: The lungs are clear. The cardiomediastinal silhouette is within normal limits. There are no pleural effusions. There is no pneumothorax suspected. IMPRESSION: 1: NO ACUTE CARDIOPULMONARY DISEASE. Reviewed, dictated and finalized at location A.
--- OUTSIDE RECORDS SUMMARY | 2024-08-11 04:12 | XMS_ITS | Clinical Summary ---
Author Organization [facility] Address [address] [place] [address] Phone Care Team Providers Care Finance Insurance Manager Name Role Phone Markus Clinton DO Primary Care Provider Allergies Active Allergy Reactions Criticality Noted Date Comments Iodinated Contrast Media Rash 06/15/2024 Medications Benzonatate 200 MG Capsule Take 1 Capsule by mouth 3 times daily as needed for Cough for up to 14 days. 42 Capsule 06/30/2024 07/15/19 Encounters Date Type Department Care Team Description 06/30/2024 11:09 AM CDT - 06/30/2024 1:02 PM CDT Emergency [facility] Emergency [address] [place] [address] Lars Olivares PAC Viral URI Discharge Disposition: Discharged to home or Selfcare 06/30/2024 Travel 06/18/2024 Patient Outreach [facility] [address] [place] [phone] Jocelyn Blanc ED Follow-up 06/15/2024 5:31 PM FIELD CROP FARMING SUPERVISOR - 06/16/2024 12:47 AM FIELD CROP FARMING SUPERVISOR Emergency [facility] Emergency [address] [place] [address] Cem Slater MD Atypical chest pain Discharge Disposition: Discharged to home or Selfcare 06/15/2024 Travel from Last 3 Months Social History Tobacco Use Types Packs/Day Years Used Date Smoking Tobacco: Every Day Cigarettes Tobacco Cessation:Ready to Q uit: Not Asked; Counseling Given: Not Answered Alcohol Use Standard Drinks/Week Comments Not Currently 0 (1 standard drink = 0.6 oz pur e alcohol) Sex and Gender Information Value Date Recorded Sex Assigned at Not on file Legal Sex Male 11:53 PM CDT Gender Identity Not on file Sexual Orientation Not on file Last Filed Vital Signs Vital Sign Reading Time Taken Comments Blood Pressure 103/72 06/30/2024 1:00 PM CDT Pulse 86 06/30/2024 1:00 PM CDT Temperature 36.6 C (97.9 F) 06/30/2024 11:06 AM CDT Respiratory Rate 18 06/30/2024 1:00 PM CDT Oxygen Saturation 97% 06/30/2024 1:00 PM CDT Inhaled Oxygen Concentration - - Weight 184.6 kg (407 lb) 06/30/2024 11:06 AM CDT Height 185.4 cm (6' 1 ) 06/30/2024 11:06 AM CDT Body Mass Index 53.7 06/30/2024 11:06 AM CDT Plan of Treatment Health Maintenance Due Date Last Done Comments Hepatitis C Virus (HCV) Screening 1978 TdaP Immunization 1978 Hepatitis B Immunization (1 of 3 - 19+ 3-dose series) 1997 Pneumococcal Immunization Combined (1 of 2 - PCV) 1997 Colonoscopy 12/21/2023 Colorectal Cancer Screening 12/21/2023 Influenza Immunization (#1) 2023 01/24/2022 SARS-COV-2 Immunization (3 - 2023- season) 2023 01/24/2022, 11/16/2021 Respiratory Syncytial Virus (RSV) Immunization (Adult) (1 - 1-dose 75+ series) 2053 Meningococcal Immunization (ACWY) Aged Out No longer eligible b ased on patient's age to complete this topic Rotavirus Immunization Aged Out No lo nger eligible based on patient's age to complete this topic Procedures Procedure Name Priority Date/Time Associated Diagnosis Comments RSV,SARS-COV-2,INF LUENZA A&B BY PCR STAT 06/30/2024 11:[address] ANGIO CHEST W/WO CONTRAST WITH PP (POST PROCESSING) Stat with Interpretation 06/15/2024 10:52 PM FIELD CROP FARMING SUPERVISOR AEROSOL NEBULIZER-INITIAL STAT 06/15/2024 7:52 PM FIELD CROP FARMING SUPERVISOR TROPONIN I, HIGH SENSITIVITY (HSTRP) STAT 06/15/2024 7:34 PM FIELD CROP FARMING SUPERVISOR XR CHEST SINGLE VIEW PORTABLE STAT 06/15/2024 6:05 PM FIELD CROP FARMING SUPERVISOR RSV,SARS-COV-2,INF LUENZA A&B BY PCR STAT 06/15/2024 5:59 PM FIELD CROP FARMING SUPERVISOR CBC WITH AUTO DIFFERENTIAL STAT 06/15/2024 5:57 PM FIELD CROP FARMING SUPERVISOR D-DIMER STAT 06/15/2024 5:57 PM FIELD CROP FARMING SUPERVISOR TROPONIN I, HIGH SENSITIVITY (HSTRP) STAT 06/15/2024 5:57 PM FIELD CROP FARMING SUPERVISOR CMP (COMPREHENSIVE METABOLIC PANEL) STAT 06/15/2024 5:57 PM FIELD CROP FARMING SUPERVISOR COMPLETE BLOOD COUNT (CBC) WITH DIFF STAT 06/15/2024 5:57 PM FIELD CROP FARMING SUPERVISOR EKG 12 LEAD STAT 06/15/2024 5:49 PM FIELD CROP FARMING SUPERVISOR EKG SCAN 06/15/2024 12:00 AM FIELD CROP FARMING SUPERVISOR from Last 3 Months Results * RSV,SARS-COV-2,INFLUENZA A&B BY PCR (06/30/2024 11:50 AM CDT) Only the most recent of2 resultswithin the time period is included. FLU A Negative Negative, Error 06/30/2024 12:41 PM CDT [facility] FLU B Negative Negative 06/30/2024 12:41 PM CDT [facility] RESP SYNC VIRUS Negative Negative 12:41 PM CDT [facility] SARSCOV2 NOT DETECTED (Reference Range for this test is Not Detected) 06/30/2024 12:41 PM CDT [facility] Comment:This test was perfor med by a Reverse Hot Metal Crane Operator PCR Method. Swab NASOPHARYNGEAL WASHINGS / Unknown Non-Phlebotomy Collection / Unknown 06/30/2024 11:50 AM CDT 06/30/2024 12:02 PM CDT us Lars Olivares PAC MICROBIOLOGY - GENER AL ORDERABLES Final Result [facility] [address] [place] [address] * CT ANGIO CHEST W/WO CONTRAST WITH PP (POST PROCESSING) (06/15/2024 10:52 PM FIELD CROP FARMING SUPERVISOR) Anatomical Region Laterality Modality vascular N/A Computed Tomogra phy 06/16/2024 12:0 3 AM FIELD CROP FARMING SUPERVISOR Impressions 06/16/2024 12:05 AM FIELD CROP FARMING SUPERVISOR IMPRESSION: No CT evidence for pulmonary embolus. Cholelithiasis and contracted gallbladder. Narrative 06/16/2024 12:05 AM FIELD CROP FARMING SUPERVISOR EXAM DESCRIPTION: CT ANGIO CHEST W/WO CONTRAST WITH PP (POST PROCESSING) REASON FOR STUDY: c/o left sided chest tightness today. Nasal congestion and productive cough x 1 week. HX: Smoker TECHNIQUE: CT angiogram of the chest performed with intravenous contrast using helical scanning technique with dynamic intravenous contrast injection. Reconstructed coronal and sagittal MPR images reviewed. All images stored on PACS. 3D MIP images rendered on scanning unit and reviewed at time of interpretation. Automated exposure control was used as a dose optimization technique for this examination. CONTRAST TYPE/DOSE: 100mL of IOPAMIDOL 76 % IV SOLN injected via Intravenous COMPARISON: None FINDINGS: VASCULATURE: No identified pulmonary emboli. LUNGS: No nodules or masses. No pneumonia. PLEURA: No effusion. No pneumothorax. MEDIASTINUM/KARON: No identified masses or abnormal nodes. HEART: Heart size is normal with no pericardial effusion. AXILLA: No adenopathy. CHEST WALL: No masses. No subcutaneous air. HARDWARE/LINES/TUBES: None. UPPER ABDOMEN: Cholelithiasis and contracted gallbladder. MUSCULOSKELETAL: No significant abnormality. OTHER: No significant abnormality. THIS IS AN ELECTRONICALLY VERIFIED FINAL REPORT 06/16/2024 12:03 AM - Electronically signed by Taran Piper M.D., KT: TRE Report ID: [id number] Reading Location: [id number] Procedure Note Taran Piper MD - 06/16/2024 EXAM DESCRIPTION: CT ANGIO CHEST W/WO CONTRAST WITH PP (POST PROCESSING) REASON FOR STUDY: c/o left sided chest tightness today. Nasal congestion and productive cough x 1 week. HX: Smoker TECHNIQUE: CT angiogram of the chest performed with intravenous contrast using helical scanning technique with dynamic intravenous contrast injection. Reconstructed coronal and sagittal MPR images reviewed. All images stored on PACS. 3D MIP images rendered on scanning unit and reviewed at time of interpretation. Automated exposure control was used as a dose optimization technique for this examination. CONTRAST TYPE/DOSE: 100mL of IOPAMIDOL 76 % IV SOLN injected via Intravenous COMPARISON: None FINDINGS: VASCULATURE: No identified pulmonary emboli. LUNGS: No nodules or masses. No pneumonia. PLEURA: No effusion. No pneumothorax. MEDIASTINUM/KARON: No identified masses or abnormal nodes. HEART: Heart size is normal with no pericardial effusion. AXILLA: No adenopathy. CHEST WALL: No masses. No subcutaneous air. HARDWARE/LINES/TUBES: None. UPPER ABDOMEN: Cholelithiasis and contracted gallbladder. MUSCULOSKELETAL: No significant abnormality. OTHER: No significant abnormality. THIS IS AN ELECTRONICALLY VERIFIED FINAL REPORT 06/16/2024 12:03 AM - Electronically signed by Taran Piper M.D. KT: TRE Report ID: [id number] Reading Location: [id number] IMPRESSION: No CT evidence for pulmonary embolus. Cholelithiasis and contracted gallbladder. us Cem Slater MD IMG CT ORDERABLES Fi nal Result * TROPONIN I, HIGH SENSITIVITY (HSTRP) (06/15/2024 7:34 PM FIELD CROP FARMING SUPERVISOR) Only the most recent of2 resultswithin the time period is included. TROPONIN I, HIGH SENSITIVITY- [place] 3 <=35 ng/L 06/15/2024 8:16 PM FIELD CROP FARMING SUPERVISOR [facility] Comment: High-sensitivity troponin I results are reported in ng/L making the result appear to be 1,000 times higher than the contemporary troponin I value which is reported in ng/ml. Results from [place]. Blood Venipuncture / Unknown 06/15/2024 7:34 PM FIELD CROP FARMING SUPERVISOR 06/15/2024 7:51 PM FIELD CROP FARMING SUPERVISOR us Cem Slater MD CHEMISTRY ORDERABLES Final Result [facility] [address] [place] [address] * XR CHEST SINGLE VIEW PORTABLE (06/15/2024 6:05 PM FIELD CROP FARMING SUPERVISOR) Anatomical Region Laterality Modality Chest N/A Computed Radiogr aphy 06/15/2024 6:27 PM FIELD CROP FARMING SUPERVISOR Impressions 06/15/2024 6:29 PM FIELD CROP FARMING SUPERVISOR IMPRESSION: No acute cardiopulmonary abnormality. Narrative 06/15/2024 6:29 PM FIELD CROP FARMING SUPERVISOR EXAM DESCRIPTION: XR CHEST SINGLE VIEW PORTABLE REASON FOR STUDY: pt c/o LT side chest tightness and pain with wheezing and SOB. pt is a current smoker and has no hx of surgery TECHNIQUE: 1 radiographic view(s) of the chest. COMPARISON: None FINDINGS: LUNGS: No focal opacity, pleural effusion, or pneumothorax. HEART/MEDIASTINUM: Cardiac silhouette normal in size. Mediastinal and hilar contours appear normal. LINES/TUBES: None. BONES: No acute osseous abnormality. THIS IS AN ELECTRONICALLY VERIFIED FINAL REPORT 06/15/2024 6:27 PM - Electronically signed by Taran Piper M.D. KT: TRE Report ID: [id number] Reading Location: [place] [id number] Procedure Note Taran Piper MD - 06/15/2024 EXAM DESCRIPTION: XR CHEST SINGLE VIEW PORTABLE REASON FOR STUDY: pt c/o LT side chest tightness and pain with wheezing and SOB. pt is a current smoker and has no hx of surgery TECHNIQUE: 1 radiographic view(s) of the chest. COMPARISON: None FINDINGS: LUNGS: No focal opacity, pleural effusion, or pneumothorax. HEART/MEDIASTINUM: Cardiac silhouette normal in size. Mediastinal and hilar contours appear normal. LINES/TUBES: None. BONES: No acute osseous abnormality. THIS IS AN ELECTRONICALLY VERIFIED FINAL REPORT 06/15/2024 6:27 PM - Electronically signed by Taran Piper M.D. KT: TRE Report ID: [id number] Reading Location: [place] [address] IMPRESSION: No acute cardiopulmonary abnormality. Edmund Bruno MD IMG DIAGNOSTIC ORDERABLES Final Result * (ABNORMAL) CBC with Auto Differential (06/15/2024 5:57 PM FIELD CROP FARMING SUPERVISOR) WBC 12.16(H) 4.00 - 12.00 10(3)/mcL 06/15/2024 6:24 PM FIELD CROP FARMING SUPERVISOR [facility] RBC 4.85 4.40 - 5.80 10(6)/mcL 06/15/2024 6:24 PM [facility] HEMOGLOBIN (HGB) 15.2 13.0 - 16.5 g/dL 06/15/2024 6:24 PM [facility] HEMATOCRIT (HCT) 44.8 38.0 - 50.0 % 06/15/2024 6:24 PM FIELD CROP FARMING SUPERVISOR [facility] MCV 92.4 82.0 - 96.0 fL 06/15/2024 6:24 PM FIELD CROP FARMING SUPERVISOR [facility] MCH 31.3 26.0 - 32.0 pg 06/15/2024 6:24 PM [facility] MCHC 33.9 31.0 - 36.0 g/dL 06/15/2024 6:24 PM [facility] PLATELET COUNT 318 140 - 440 10(3)/mcL 06/15/2024 6:24 PM [facility] RDW 13.5 11.8 - 15.5 % 06/15/2024 6:24 PM FIELD CROP FARMING SUPERVISOR [facility] MPV 10.0 8.0 - 12.6 fL 06/15/2024 6:24 PM FIELD CROP FARMING SUPERVISOR [facility] NEUTROPHILS 70.1(H) 40.0 - 68.0 % 06/15/2024 6:24 PM FIELD CROP FARMING SUPERVISOR [facility] LYMPHOCYTES 18.0(L) 19.0 - 49.0 % 06/15/2024 6:24 PM FIELD CROP FARMING SUPERVISOR [facility] MONOCYTES 10.1 3.0 - 13.0 % 06/15/2024 6:24 PM FIELD CROP FARMING SUPERVISOR [facility] EOSINOPHILS 1.2 0.0 - 8.0 % 06/15/2024 6:24 PM [facility] BASOPHILS 0.6 0.0 - 1.0 % 06/15/2024 6:24 PM [facility] ABSOLUTE NEUTROPHILS 8.52(H) 1.40 - 5.30 10(3)/[facility] 06/15/2024 6:24 PM [facility] ABSOLUTE LYMPHOCYTES 2.19 0.90 - 3.30 10(3)/[facility] 06/15/2024 6:24 PM [facility] ABSOLUTE MONOCYTES 1.23(H) 0.10 - 0.90 10(3)/[facility] 06/15/2024 6:24 PM [facility] ABSOLUTE EOSINOPHIL 0.15 0.00 - 0.50 10(3)/[facility] 06/15/2024 6:24 PM [facility] ABSOLUTE BASOPHILS 0.07 0.00 - 0.10 10(3)/[facility] 06/15/2024 6:24 PM [facility] NRBC PER 100 WBC 0 06/15/19 6:24 PM [facility] Blood Venipuncture / Unknown 06/15/2024 5:57 PM FIELD CROP FARMING SUPERVISOR 06/15/2024 6:21 PM FIELD CROP FARMING SUPERVISOR us Edmund Bruno MD HEMATOLOGY ORDERABLES Elaina l Result Performing Organization Address [facility]/ZIP Co de Phone Number [facility] [address] [place] [address] * (ABNORMAL) D-Dimer (06/15/2024 5:57 PM FIELD CROP FARMING SUPERVISOR) Pathologist [facility] D DIMER 0.52(H) <0.50 mcg/mL FEU 06/15/2024 8:36 PM FIELD CROP FARMING SUPERVISOR [facility] Blood Venipuncture / Unknown 06/15/2024 5:57 PM FIELD CROP FARMING SUPERVISOR 06/15/2024 8:27 PM FIELD CROP FARMING SUPERVISOR Narrative [facility] - 06/15/2024 8:36 PM FIELD CROP FARMING SUPERVISOR The FDA has approved this method to exclude the diagnosis of DVT and/or PE at the cutoff value of <0.50 mcg/mL FEU. Cem Slater MD HEMATOLOGY ORDERABLE S Final Result Performing Organization Address [facility] Co de Phone Number [facility] [address] [place] [address] * (ABNORMAL) CMP (Comprehensive Metabolic Panel) (06/15/2024 5:57 PM FIELD CROP FARMING SUPERVISOR) [facility] SODIUM 137 136 - 145 mmol/L 06/15/2024 6:45 PM FIELD CROP FARMING SUPERVISOR [facility] POTASSIUM 3.7 3.5 - 5.1 mmol/L 06/15/2024 6:45 PM FIELD CROP FARMING SUPERVISOR [facility] CHLORIDE 105 98 - 107 mmol/L 06/15/2024 6:45 PM FIELD CROP FARMING SUPERVISOR [facility] CO2, VENOUS 23 22 - 30 mmol/L 06/15/2024 6:45 PM FIELD CROP FARMING SUPERVISOR [facility] ANION GAP 12.7 <18.0 mmol/L 06/15/2024 6:45 PM FIELD CROP FARMING SUPERVISOR [facility] GLUCOSE 116(H) 70 - 99 mg/dL 06/15/2024 6:45 PM FIELD CROP FARMING SUPERVISOR [facility] BUN 11 9 - 21 mg/dL 06/15/2024 6:45 PM [facility] CREATININE, BLOOD 0.87 0.70 - 1.30 mg/dL 06/15/2024 6:45 PM [facility] BUN/CREATININE RATIO 13 12 - 20 ratio 06/15/2024 6:45 PM [facility] TOTAL PROTEIN 7.3 6.0 - 8.0 g/dL 06/15/2024 6:45 PM [facility] ALBUMIN 3.8 3.5 - 5.0 g/dL 06/15/2024 6:45 PM [facility] A/G RATIO 1.1 1.0 - 2.2 06/15/2024 6:45 PM [facility] CALCIUM 8.4(L) 8.7 - 10.5 mg/dL 06/15/2024 6:45 PM [facility] T BILI 0.6 0.2 - 1.2 mg/dL 06/15/2024 6:45 PM [facility] SGOT (AST) 20 <43 U/L 06/15/2024 6:45 PM [facility] SGPT (ALT) 17 <56 U/L 06/15/2024 6:45 PM [facility] ALKALINE PHOSPHATASE 66 40 - 150 U/L 06/15/2024 6:45 PM [facility] GFR, ESTIMATED >60 >=60 06/15/2024 6:45 PM [facility] Comment: Creatinine Clearance is the preferred criteria for selecting drug dose adjustments in renally impaired patients. The GFR is provided as additional pertinent clinical information. GFR is reported in mL/min/1.73 sq m. Calculation based on the Chronic Kidney Disease Epidemiology Collaboration (CKD- EPI) equation refit without adjustment for race. GFR, EST. >60 >=60 025 6:45 PM [facility] GFR, EST. NONAFRICAN >60 >=60 06/15/2024 6:45 PM [facility] Blood Venipuncture / Unknown 06/15/2024 5:57 PM FIELD CROP FARMING SUPERVISOR 06/15/2024 6:21 PM FIELD CROP FARMING SUPERVISOR us Edmund Bruno MD CHEMISTRY ORDERABLES Final Result [facility] [address] [place] [address] * EKG 12 LEAD (06/15/2024 5:49 PM FIELD CROP FARMING SUPERVISOR) Ventricular Rate 101 BPM EXTERNAL EKG Atrial Rate 101 BPM EXTERNAL EKG P-R Interval 156 ms EXTERNAL EKG QRS Duration 92 ms EXTERNAL EKG Q-T Duration 328 ms EXTERNAL EKG QTC CALCULATION 425 ms EXTERNAL EKG P [place] 43 degrees EXTERNAL EKG R [place] 70 degrees EXTERNAL EKG T [place] 42 degrees EXTERNAL EKG 06/15/2024 5:49 PM FIELD CROP FARMING SUPERVISOR Impressions EXTERNAL EKG - 06/17/2024 10:33 AM FIELD CROP FARMING SUPERVISOR Sinus tachycardia Otherwise normal ECG No previous ECGs available Confirmed by Dionte Muñoz ([id number]) on 06/17/2024 10:33:25 AM Narrative Procedure Note Dionte Muñoz MD - 06/17/2024 IMPRESSION: Sinus tachycardia Otherwise normal ECG No previous ECGs available Confirmed by Dionte Muñoz ([id number]) on 06/17/2024 10:33:25 AM us Edmund Bruno MD IMG ECG ORDERABLES Final R esult Performing Organization Address City/[facility]/ZIP Co de Phone Number EXTERNAL EKG * EKG SCAN (06/15/2024 12:00 AM FIELD CROP FARMING SUPERVISOR) 06/15/2024 us Provider Scan IMG ECG ORDERABLES Final Result RESULTING AGENCY from Last [address] [facility] Care Teams Finance Insurance Manager Relationship Specialty Start Date End Date Markus Clinton DO [facility] [place] [address] PCP - General Internal Medicine 06/15/24
--- OUTSIDE RECORDS SUMMARY | 2024-08-11 04:12 | XMS_ITS | Clinical Summary ---
Author Organization [facility] Address [address] [place] [address] Care Team Providers Care Publishing Editor Name Role Phone Unavailable Primary Care Provider Unavailabl e Source Comments [facility],non-owned Affiliates and Associated Physician Practices is amultiple site organization consisting of ambulatory clinics and hospital sitesin [place], [place], [place] and [place]. This disclosure is being madepursuant to the Care Everywhere program and may not contain all information available regarding this patient. Last updated 18.[facility] Allergies Active Allergy Reactions Criticality Noted Date Comments Contrast-Iodinated Agents For Ct/Other Other 06/29/2018 unknown Medications * This document contains information received from the source organization and may not represent a complete record from that organization. * Be aware that medications may not be up to date on this document. Alwaysverify current medications with the patient. No known [...] at Not on file Legal Sex Male 8:00 AM GENERAL REPAIR MECHANIC Gender Identity Not on file Sexual Orientation [...] (360 lb 1 oz) 06/29/2018 9:00 PM GENERAL REPAIR MECHANIC Height 195.6 cm (6' 5 ) 06/29/2018 9:00 PM GENERAL REPAIR MECHANIC Body Mass Index 42.7 06/29/2018 9:00 PM GENERAL REPAIR MECHANIC Plan of Treatment Health Maintenance Due [...] of 3 - 19+ 3-dose series) 1997 LIPID TESTING 07/02/2023 07/01/2018 COVID-19 VACCINE (1 - 2023-2 5 season) 2023 DEPRESSION SCREENING 04/24/2024 INFLUENZA VACCINE (Season Ended) 2024 ZOSTER VACCINE (1 of 2) 2028 HIV SCREENING Completed 06/29/2018 HIB VACCINE Aged Out No longer eligi ble based on patient's age to complete this topic HPV VACCINE Aged Out No longer eligi ble based on patient's age to complete this topic MENINGOCOCCAL (Group B) VACC INE SHARED DECISION-MAKING Aged Out No longer eligibl e based on patient's age to complete this topic MENINGOCOCCAL GROUPS A/C/Y/W VACCINE Aged Out No longer eligible b ased on patient's age to complete this topic PNEUMOCOCCAL VACCINE Aged Out No long er eligible based on patient's age to complete this topic Procedures Procedure Name Priority Date/Time Associated Diagnosis Comments LIPID PROFILE Routine 07/01/2018 6:34 AM CDT HIV-1 HIV-2 ANTIGEN/ANTIBODY STAT 06/29/2018 4:34 PM GENERAL REPAIR MECHANIC from Last 3 Months or Most Recently Relevant to Health Maintenance Results * (ABNORMAL) LIPID PROFILE (07/01/2018 6:34 AM CDT) Cholesterol Total 184 <200 mg/dL 07/01/2018 7:05 AM [facility] HDL 31(L) >40 mg/dL 07/01/2018 7:05 AM [facility] Comment: ATP III Classification of HDL Cholesterol: <40 mg/dL: Considered a major risk factor. >60 mg/dL: Considered a negative risk factor. LDL Calculated 127(H) <100 mg/dL 07/01/2018 7:05 AM [facility] Comment: ATP III Classification of LDL Cholesterol: <100 mg/dL: Optimal 100 - 129 mg/dL: Near Optimal/Above Optimal 130 - 159 mg/dL: Borderline High 160 - 189 mg/dL: High >190 mg/dL: Very High Triglycerides 130 <150 mg/dL 07/01/2018 7:05 AM [facility] Comment: ATP III Classification of Triglycerides: <150 mg/dL: Normal 150 - 199 mg/dL: Borderline High 200 - 400 mg/dL: High >500 mg/dL: Very High Blood BLOOD SPECIMEN / Unknown Venipuncture / Unknown 07/01/2018 6:34 AM CDT 07/01/2018 6:39 AM CDT us Elsa Morejon MD LAB - CHEMISTRY ORDERABLES Final Result Performing Organization Address [facility]/State/[facility] Co de Phone Number [address] [phone] * HIV-1 HIV-2 ANTIGEN/ANTIBODY (06/29/2018 4:34 PM GENERAL REPAIR MECHANIC) HIV Antigen/Antibod y 1 & 2 Non-reacti ve Non-react belinda 06/29/2018 5:17 PM GENERAL REPAIR MECHANIC [facility] Comment: Neither HIV-1 p24 Antigen nor HIV-1/HIV-2 Antibodies are detected. Blood BLOOD SPECIMEN / Unknown Venipuncture / Unknown 06/29/2018 4:34 PM GENERAL REPAIR MECHANIC 06/29/2018 4:34 PM GENERAL REPAIR MECHANIC us Elia Caba MD LAB - HEMATOLOGY ORDERABLES Final Result [place] [id number] [address] [phone] from Last 3 Months or Most Recently Relevant to Health Maintenance Insurance MEDICAID - [place] Advance Directives * Full Code (Latest Code Status on File) Date Activated Date Inactivated Comments 06/29/2018 8:50 PM 07/02/2018 3:59 PM * Full Code Date Activated Date Inactivated Comments 06/29/2018 12:23 PM 06/29/2018 8:50 PM
--- OUTSIDE RECORDS SUMMARY | 2024-08-11 04:12 | XMS_ITS | Referral Summary ---
Author Organization [facility] al Address [address] [place] [address] Care Team Providers Care Regulatory Affairs Assistant Name Role Phone No, Physician Primary Care Provider [phone] Allergies No known active allergies Active Problems [...] on file Legal Sex Male 11:04 AM GENERALIST Gender Identity Not on file Sexual Orientation Not on file Last Filed Vital Signs Vital Sign Reading Time Taken Comments Blood Pressure 98/78 06/02/2023 4:30 PM GENERALIST Pulse 76 06/02/2023 4:30 PM GENERALIST Temperature 36.6 C (97.9 F) 06/02/2023 2:10 AM GENERALIST Respiratory Rate 16 06/01/2023 11:05 PM GENERALIST Oxygen Saturation 91% 06/02/2023 4:30 PM GENERALIST Inhaled Oxygen Concentration - - Weight 172.4 kg (380 lb) 06/01/2023 11:05 PM GENERALIST Height 193 cm (6' 4 ) 06/01/2023 11:05 PM GENERALIST Body Mass Index 46.26 06/01/2023 11:05 PM GENERALIST Plan of Treatment Not on file Procedures [...] RNA. Detection and Quantitation by Real-Time Reverse Manager Finance-PCR.Current Interpretive data was last revised on 2016. Blood specimen (specimen) 10/15/2016 11:16 PM CDT 10/16/2016 12:00 AM CDT Holden Yost MD LAB MICROBIOLOGY - GENER AL ORDERABLES Edited Result - Final JEFFREYZOILA PEREZ [facility] Department [place] [address] from Last 3 Months or Most Recently Relevant to Health Maintenance Insurance [facility] Care Teams Regulatory Affairs Assistant Relationship Specialty Start Date End Date No, Physician PCP - General 12/02/21
--- OUTSIDE RECORDS SUMMARY | 2024-08-11 04:12 | XMS_ITS | Clinical Summary ---
Author Organization [facility] Address [address] [place] [address] Care Team Providers Care Musical String Maker Name Role Phone No, Physician Primary Care Provider Allergies No known active allergies Active Problems [...] on file Legal Sex Male 11:04 AM HOGSHEAD SALVAGE Gender Identity Not on file Sexual Orientation Not on file Obstetrics History Last Filed Vital Signs Vital Sign Reading Time Taken Comments Blood Pressure 98/78 06/02/2023 4:30 PM HOGSHEAD SALVAGE Pulse 76 06/02/2023 4:30 PM HOGSHEAD SALVAGE Temperature 36.6 C (97.9 F) 06/02/2023 2:10 AM HOGSHEAD SALVAGE Respiratory Rate 16 06/01/2023 11:05 PM HOGSHEAD SALVAGE Oxygen Saturation 91% 06/02/2023 4:30 PM HOGSHEAD SALVAGE Inhaled Oxygen Concentration - - Weight 172.4 kg (380 lb) 06/01/2023 11:05 PM HOGSHEAD SALVAGE Height 193 cm (6' 4 ) 06/01/2023 11:05 PM HOGSHEAD SALVAGE Body Mass Index 46.26 06/01/2023 11:05 PM HOGSHEAD SALVAGE Plan of Treatment Health Maintenance Due Date [...] C antibody (10/15/2016 11:16 PM CDT) Pathologist [facility] Hep C Ab Nonreactive Nonreactive [facility] Comment: Interpretive Data Positive and greyzone results should be confirmed by a molecular method. If positive or greyzone, a second separately collected sample should be submitted for Hepatitis C Virus RNA. Detection and Quantitation by Real-Time Reverse Inside Sales Person-PCR.Current Interpretive data was last revised on 2016. Blood specimen (specimen) 10/15/2016 11:16 PM CDT 10/16/2016 12:00 AM CDT us Holden Yost MD LAB MICROBIOLOGY - GENER AL ORDERABLES Edited Result - Final MARYANNE BJShilpa [facility] Department [place] [address] from Last 3 Months or Most Recently Relevant to Health Maintenance Insurance [facility] Care Teams Musical String Maker Relationship Specialty Start Date End Date No, Physician PCP - General 12/02/21
--- NOTE | 2024-08-11 04:15 | ECG_ITS ---
Test Date: 2024-08-11 04:20:51 Measurements Intervals [place] Rate: 99 P: 74 OR: 151 QRS: 64 QRSD: 101 T: 45 QT: 322 QTc: 413 Interpretive Statements SINUS RHYTHM BASELINE ARTIFACT- I, III, AVR, AVL, AVF, V1-V2 NORMAL ECG No previous ECG available for comparison Electronically Signed On 08-11-2024 07:39:48 CDT by Jose Juan Chicas D.O.
[2024-08-11 04:38] LABS: Basophils Absolute Auto 0.1 K/mm3 (0.0-0.1); Basophils Percent Auto 0.5 % (0.2-1.2); Eosinophils Absolute Auto 0.2 K/mm3 (0-0.3); Eosinophils Percent Auto 1.8 % (0-4.4); Hematocrit 47.3 % (42.0-52.0); Hemoglobin 15.1 g/dL (14.0-18.0); Immature Granulocyte Absolute 0.06 K/mm3 (0.00-0.031); Immature Granulocyte Percent A 0.5 % (0-0.5); Lymphocytes Absolute Auto 1.83 K/mm3 (0.9-3.2); Lymphocytes Percent Auto 15.7 % (18.3-44.2); Mean Corpuscular HGB Conc 31.9 g/dl (32-36); Mean Corpuscular Hemoglobin 30.1 pg (26-34); Mean Corpuscular Volume 94.4 fl (80-100); Monocytes Absolute Auto 0.8 K/mm3 (0.1-0.6); Monocytes Percent Auto 6.8 % (2.6-8.5); Neutrophils Absolute Auto 8.7 K/mm3 (1.3-6.7); Neutrophils Percent Auto 74.7 % (45.5-73.1); Platelet Count Result 293 k/mm3 (150-375); Red Blood Count 5.01 M/mm3 (4.6-6.20); Red Cell Distribution Width 13.4 % (11.5-14.5); White Blood Count 11.7 K/mm3 (4.5-10.0)
[2024-08-11 04:49] LABS: Alanine Aminotransferase 23 U/L (6-50); Alkaline Phosphatase 65 U/L (38-126); Anion Gap 12 mmol/L (4-12); Aspartate Amino Transferase 24 U/L (17-59); Bilirubin,Total 0.4 mg/dL (0.2-1.3); Blood Urea Nitrogen 15 mg/dL (9-20); Calcium 8.6 mg/dL (8.4-10.2); Carbon Dioxide 23 mmol/L (22-30); Chloride 105 mmol/L (98-107); Estimated CRCL calculation 169 ml/min; Estimated Glomerular Filt Rate > 60; Glucose 135 mg/dL (65-110); Potassium 3.9 mmol/L (3.4-5.0); Prothrombin Time 13.1 Seconds (11.1-14.7); Sodium 140 mmol/L (137-145)
[2024-08-11 04:50] LABS: Partial Thromboplastin Time 32.1 Seconds (22.3-36.8)
--- OUTSIDE RECORDS SUMMARY | 2024-08-11 04:54 | XMS_ITS | Clinical Summary ---
Author Organization [facility] Address [address] [place] [address] Care Team Providers Care Safety Companion Name Role Phone Unavailable Primary Care Provider Unavailabl e Source Comments [facility],non-owned Affiliates and Associated Physician Practices is amultiple site organization consisting of ambulatory clinics and hospital sitesin [place], [place], [place] and [place]. This disclosure is being madepursuant to the Care Everywhere program and may not contain all information available regarding this patient. Last updated 18.[facility] Allergies Active Allergy Reactions Criticality Noted Date [...] on file Legal Sex Male 8:00 AM STAGE RIGGER Gender Identity Not on file Sexual Orientation [...] (360 lb 1 oz) 06/29/2018 9:00 PM STAGE RIGGER Height 195.6 cm (6' 5 ) 06/29/2018 9:00 PM STAGE RIGGER Body Mass Index 42.7 06/29/2018 9:00 PM STAGE RIGGER Plan of Treatment Health Maintenance Due Date [...] HIV-1 HIV-2 ANTIGEN/ANTIBODY STAT 06/29/2018 4:34 PM STAGE RIGGER from Last 3 Months or Most Recently Relevant to Health Maintenance Results * (ABNORMAL) LIPID PROFILE (07/01/2018 6:34 AM CDT) Cholesterol Total 184 <200 mg/dL 07/01/2018 7:[address] [facility] HDL 31(L) >40 mg/dL 07/01/2018 7:05 AM [facility] Comment: ATP III Classification of HDL Cholesterol: <40 mg/dL: Considered a major risk factor. >60 mg/dL: Considered a negative risk factor. LDL Calculated 127(H) <100 mg/dL 07/01/2018 7:05 AM [facility] Comment: ATP III Classification of LDL Cholesterol: <100 mg/dL: Optimal 100 - 129 mg/dL: Near Optimal/Above Optimal 130 - 159 mg/dL: Borderline High 160 - 189 mg/dL: High >190 mg/dL: Very High Triglycerides 130 <150 mg/dL 07/01/2018 7:05 AM [facility] Comment: ATP III Classification of Triglycerides: <150 mg/dL: Normal 150 - 199 mg/dL: Borderline High 200 - 400 mg/dL: High >500 mg/dL: Very High Blood BLOOD SPECIMEN / Unknown Venipuncture / Unknown 07/01/2018 6:34 AM CDT 07/01/2018 6:39 AM CDT us Elsa Morejon MD LAB - CHEMISTRY ORDERABLES Final Result Performing Organization Address [facility]/State/[facility] Co de Phone Number [address] [phone] * HIV-1 HIV-2 ANTIGEN/ANTIBODY (06/29/2018 4:34 PM STAGE RIGGER) HIV Antigen/Antibod y 1 & 2 Non-reacti ve Non-react belinda 06/29/2018 5:17 PM STAGE RIGGER [facility] Comment: Neither HIV-1 p24 Antigen nor HIV-1/HIV-2 Antibodies are detected. Blood BLOOD SPECIMEN / Unknown Venipuncture / Unknown 06/29/2018 4:34 PM STAGE RIGGER 06/29/2018 4:34 PM STAGE RIGGER us Elia Caba MD LAB - HEMATOLOGY ORDERABLES Final Result [place] [id number] [address] [phone] from Last 3 Months or Most Recently Relevant to Health Maintenance Insurance MEDICAID - [place] Advance Directives * Full Code (Latest Code Status on File) Date Activated Date Inactivated Comments 06/29/2018 8:50 PM 07/02/2018 3:59 PM * Full Code Date Activated Date Inactivated Comments 06/29/2018 12:23 PM 06/29/2018 8:50 PM
--- OUTSIDE RECORDS SUMMARY | 2024-08-11 04:54 | XMS_ITS | Referral Summary ---
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 Gender Identity Not on file Sexual Orientation Not on file Last Filed Vital Signs Vital Sign Reading Time Taken Comments Blood Pressure 98/78 06/02/2023 4:30 PM PATROL SERGEANT [employer] Pulse 76 06/02/2023 4:30 PM PATROL SERGEANT [employer] Temperature 36.6 C (97.9 F) 06/02/2023 2:10 AM PATROL SERGEANT [employer] Respiratory Rate 16 06/01/2023 11:05 PM PATROL SERGEANT [employer] Oxygen Saturation 91% 06/02/2023 4:30 PM PATROL SERGEANT [employer] Inhaled Oxygen Concentration - - Weight 172.4 kg (380 lb) 06/01/2023 11:05 PM PATROL SERGEANT [employer] Height 193 cm (6' 4 ) 06/01/2023 11:05 PM PATROL SERGEANT [employer] Body Mass Index 46.26 06/01/2023 11:05 PM PATROL SERGEANT [employer] OFF[employer] Plan of Treatment Not on file Procedures [...] RNA. Detection and Quantitation by Real-Time Reverse Sack Sorter-PCR.Current Interpretive data was last revised on 2016. Blood specimen (specimen) 10/15/2016 11:16 PM CDT 10/16/2016 12:00 AM CDT Holden Yost MD LAB MICROBIOLOGY - GENER AL ORDERABLES Edited Result - Final JEFFREYZOILA PEREZ [facility] Department [place] [address] from Last 3 Months or Most Recently Relevant to Health Maintenance Insurance [facility] Care Teams Bottom Precipitator Operator Relationship Specialty Start Date End Date No, Physician PCP - General 12/02/21
--- OUTSIDE RECORDS SUMMARY | 2024-08-11 04:54 | XMS_ITS | Clinical Summary ---
Author Organization [facility] Address [address] [place] [address] Phone Care Team Providers Care Glaze Wiper Name Role Phone Markus Clinton DO Primary [...] - 06/30/2024 1:02 PM CDT Emergency [facility] [address] [place] [address] Lars Olivares PAC Viral URI Discharge Disposition: Discharged to home or Selfcare 06/30/2024 Travel 06/18/2024 Patient Outreach [facility] [address] [place] [phone] Jocelyn Blanc ED Follow-up 06/15/2024 5:31 PM HOT METAL CRANE OPERATOR - 06/16/2024 12:47 AM HOT METAL CRANE OPERATOR Emergency [facility] [address] [place] [address] Cem Slater MD Atypical chest [...] PROCESSING) Stat with Interpretation 06/15/2024 10:52 PM HOT METAL CRANE OPERATOR AEROSOL NEBULIZER-INITIAL STAT 06/15/2024 7:52 PM HOT METAL CRANE OPERATOR TROPONIN I, HIGH SENSITIVITY (HSTRP) STAT 06/15/2024 7:34 PM HOT METAL CRANE OPERATOR XR CHEST SINGLE VIEW PORTABLE STAT 06/15/2024 6:05 PM HOT METAL CRANE OPERATOR RSV,SARS-COV-2,INF LUENZA A&B BY PCR STAT 06/15/2024 5:59 PM HOT METAL CRANE OPERATOR CBC WITH AUTO DIFFERENTIAL STAT 06/15/2024 5:57 PM HOT METAL CRANE OPERATOR D-DIMER STAT 06/15/2024 5:57 PM HOT METAL CRANE OPERATOR TROPONIN I, HIGH SENSITIVITY (HSTRP) STAT 06/15/2024 5:57 PM HOT METAL CRANE OPERATOR CMP (COMPREHENSIVE METABOLIC PANEL) STAT 06/15/2024 5:57 PM HOT METAL CRANE OPERATOR COMPLETE BLOOD COUNT (CBC) WITH DIFF STAT 06/15/2024 5:57 PM HOT METAL CRANE OPERATOR EKG 12 LEAD STAT 06/15/2024 5:49 PM HOT METAL CRANE OPERATOR EKG SCAN 06/15/2024 12:00 AM HOT METAL CRANE OPERATOR from Last 3 Months Results * RSV,SARS-COV-2,INFLUENZA A&B BY PCR (06/30/2024 11:50 AM CDT) Only the most recent of2 resultswithin the time period is included. FLU A Negative Negative, Error 06/30/2024 12:41 PM CDT [facility] FLU B Negative Negative 06/30/2024 12:41 PM CDT [facility] RESP SYNC VIRUS Negative Negative 12:41 PM CDT [facility] SARSCOV2 NOT DETECTED (Reference Range for this test is Not Detected) 06/30/2024 12:41 PM CDT [facility] Comment:This test was perfor med by a Reverse Early Childhood Associate PCR Method. Swab NASOPHARYNGEAL WASHINGS / Unknown Non-Phlebotomy Collection / Unknown 06/30/2024 11:50 AM CDT 06/30/2024 12:02 PM CDT us Lars Olivares PAC MICROBIOLOGY - GENER AL ORDERABLES Final Result [facility] [address] [place] [address] * CT ANGIO CHEST W/WO CONTRAST WITH PP (POST PROCESSING) (06/15/2024 10:52 PM HOT METAL CRANE OPERATOR) Anatomical Region Laterality Modality vascular N/A Computed Tomogra phy 06/16/2024 12:0 3 AM HOT METAL CRANE OPERATOR Impressions 06/16/2024 12:05 AM HOT METAL CRANE OPERATOR IMPRESSION: No CT evidence for pulmonary embolus. Cholelithiasis and contracted gallbladder. Narrative 06/16/2024 12:05 AM HOT METAL CRANE OPERATOR EXAM DESCRIPTION: CT ANGIO CHEST W/WO CONTRAST [...] Taran Piper M.D., KT: TRE Report ID: [id number] Reading Location: [id number] Procedure Note Taran Piper MD - 06/16/2024 [...] Taran Piper M.D. KT: TRE Report ID: [id number] Reading Location: [id number] IMPRESSION: No CT evidence for pulmonary embolus. Cholelithiasis and contracted gallbladder. us Cem Slater MD IMG CT ORDERABLES Fi nal Result * TROPONIN I, HIGH SENSITIVITY (HSTRP) (06/15/2024 7:34 PM HOT METAL CRANE OPERATOR) Only the most recent of2 resultswithin the time period is included. TROPONIN I, HIGH SENSITIVITY- [place] 3 <=35 ng/L 06/15/2024 8:16 PM HOT METAL CRANE OPERATOR [facility] Comment: High-sensitivity troponin I results are reported in ng/L making the result appear to be 1,000 times higher than the contemporary troponin I value which is reported in ng/ml. Results from [place]. Blood Venipuncture / Unknown 06/15/2024 7:34 PM HOT METAL CRANE OPERATOR 06/15/2024 7:51 PM HOT METAL CRANE OPERATOR us Cem Slater MD CHEMISTRY ORDERABLES Final Result [facility] [address] [place] [address] * XR CHEST SINGLE VIEW PORTABLE (06/15/2024 6:05 PM HOT METAL CRANE OPERATOR) Anatomical Region Laterality Modality Chest N/A Computed Radiogr aphy 06/15/2024 6:27 PM HOT METAL CRANE OPERATOR Impressions 06/15/2024 6:29 PM HOT METAL CRANE OPERATOR IMPRESSION: No acute cardiopulmonary abnormality. Narrative 06/15/2024 6:29 PM HOT METAL CRANE OPERATOR EXAM DESCRIPTION: XR CHEST SINGLE VIEW PORTABLE [...] Taran Piper M.D. KT: TRE Report ID: [id number] Reading Location: [place] [address] Procedure Note Taran Piper MD - 06/15/2024 [...] Taran Piper M.D. KT: TRE Report ID: [id number] Reading Location: [place] [address] IMPRESSION: No acute cardiopulmonary abnormality. Edmund Bruno MD IMG DIAGNOSTIC ORDERABLES Final Result * (ABNORMAL) CBC with Auto Differential (06/15/2024 5:57 PM HOT METAL CRANE OPERATOR) WBC 12.16(H) 4.00 - 12.00 10(3)/mcL 06/15/2024 6:24 PM HOT METAL CRANE OPERATOR [facility] RBC 4.85 4.40 - 5.80 10(6)/mcL 06/15/2024 6:24 PM [facility] HEMOGLOBIN (HGB) 15.2 13.0 - 16.5 g/dL 06/15/2024 6:24 PM [facility] HEMATOCRIT (HCT) 44.8 38.0 - 50.0 % 06/15/2024 6:24 PM HOT METAL CRANE OPERATOR [facility] MCV 92.4 82.0 - 96.0 fL 06/15/2024 6:24 PM HOT METAL CRANE OPERATOR [facility] MCH 31.3 26.0 - 32.0 pg 06/15/2024 6:24 PM [facility] MCHC 33.9 31.0 - 36.0 g/dL 06/15/2024 6:24 PM [facility] PLATELET COUNT 318 140 - 440 10(3)/mcL 06/15/2024 6:24 PM [facility] RDW 13.5 11.8 - 15.5 % 06/15/2024 6:24 PM HOT METAL CRANE OPERATOR [facility] MPV 10.0 8.0 - 12.6 fL 06/15/2024 6:24 PM HOT METAL CRANE OPERATOR [facility] NEUTROPHILS 70.1(H) 40.0 - 68.0 % 06/15/2024 6:24 PM HOT METAL CRANE OPERATOR [facility] LYMPHOCYTES 18.0(L) 19.0 - 49.0 % 06/15/2024 6:24 PM HOT METAL CRANE OPERATOR [facility] MONOCYTES 10.1 3.0 - 13.0 % 06/15/2024 6:24 PM HOT METAL CRANE OPERATOR [facility] EOSINOPHILS 1.2 0.0 - 8.0 % 06/15/2024 6:24 PM [facility] BASOPHILS 0.6 0.0 - 1.0 % 06/15/2024 6:24 PM [facility] ABSOLUTE NEUTROPHILS 8.52(H) 1.40 - 5.30 10(3)/[facility] 06/15/2024 6:24 PM [facility] ABSOLUTE LYMPHOCYTES 2.19 0.90 - 3.30 10(3)/[facility] 06/15/2024 6:24 PM [facility] ABSOLUTE MONOCYTES 1.23(H) 0.10 - 0.90 10(3)/[facility] 06/15/2024 6:24 PM [facility] ABSOLUTE EOSINOPHIL 0.15 0.00 - 0.50 10(3)/[facility] 06/15/2024 6:24 PM [facility] ABSOLUTE BASOPHILS 0.07 0.00 - 0.10 10(3)/[facility] 06/15/2024 6:24 PM [facility] NRBC PER 100 WBC 0 06/15/19 6:24 PM [facility] Blood Venipuncture / Unknown 06/15/2024 5:57 PM HOT METAL CRANE OPERATOR 06/15/2024 6:21 PM HOT METAL CRANE OPERATOR us Edmund Bruno MD HEMATOLOGY ORDERABLES Elaina l Result Performing Organization Address [facility]/ZIP Co de Phone Number [facility] [address] [place] [address] * (ABNORMAL) D-Dimer (06/15/2024 5:57 PM HOT METAL CRANE OPERATOR) Pathologist [facility] D DIMER 0.52(H) <0.50 mcg/mL FEU 06/15/2024 8:36 PM HOT METAL CRANE OPERATOR [facility] Blood Venipuncture / Unknown 06/15/2024 5:57 PM HOT METAL CRANE OPERATOR 06/15/2024 8:27 PM HOT METAL CRANE OPERATOR Narrative [facility] - 06/15/2024 8:36 PM HOT METAL CRANE OPERATOR The FDA has approved this method to exclude the diagnosis of DVT and/or PE at the cutoff value of <0.50 mcg/mL FEU. Cem Slater MD HEMATOLOGY ORDERABLE S Final Result Performing Organization Address [facility] Co de Phone Number [facility] [address] [place] [address] * (ABNORMAL) CMP (Comprehensive Metabolic Panel) (06/15/2024 5:57 PM HOT METAL CRANE OPERATOR) [facility] SODIUM 137 136 - 145 mmol/L 06/15/2024 6:45 PM HOT METAL CRANE OPERATOR [facility] POTASSIUM 3.7 3.5 - 5.1 mmol/L 06/15/2024 6:45 PM HOT METAL CRANE OPERATOR [facility] CHLORIDE 105 98 - 107 mmol/L 06/15/2024 6:45 PM HOT METAL CRANE OPERATOR [facility] CO2, VENOUS 23 22 - 30 mmol/L 06/15/2024 6:45 PM HOT METAL CRANE OPERATOR [facility] ANION GAP 12.7 <18.0 mmol/L 06/15/2024 6:45 PM HOT METAL CRANE OPERATOR [facility] GLUCOSE 116(H) 70 - 99 mg/dL 06/15/2024 6:45 PM HOT METAL CRANE OPERATOR [facility] BUN 11 9 - [...] Blood Venipuncture / Unknown 06/15/2024 5:57 PM HOT METAL CRANE OPERATOR 06/15/2024 6:21 PM HOT METAL CRANE OPERATOR us Edmund Bruno MD CHEMISTRY ORDERABLES Final Result [facility] [address] [place] [address] * EKG 12 LEAD (06/15/2024 5:49 PM HOT METAL CRANE OPERATOR) Ventricular Rate 101 BPM EXTERNAL EKG Atrial Rate 101 BPM EXTERNAL EKG P-R Interval 156 ms EXTERNAL EKG QRS Duration 92 ms EXTERNAL EKG Q-T Duration 328 ms EXTERNAL EKG QTC CALCULATION 425 ms EXTERNAL EKG P [place] 43 degrees EXTERNAL EKG R [place] 70 degrees EXTERNAL EKG T [place] 42 degrees EXTERNAL EKG 06/15/2024 5:49 PM HOT METAL CRANE OPERATOR Impressions EXTERNAL EKG - 06/17/2024 10:33 AM HOT METAL CRANE OPERATOR Sinus tachycardia Otherwise normal ECG No previous ECGs available Confirmed by Dionte Muñoz ([id number]) on 06/17/2024 10:33:25 AM Narrative Procedure Note Dionte Muñoz MD - 06/17/2024 IMPRESSION: Sinus tachycardia Otherwise normal ECG No previous ECGs available Confirmed by Dionte Muñoz ([id number]) on 06/17/2024 10:33:25 AM us Edmund Bruno MD IMG ECG ORDERABLES Final R esult Performing Organization Address City/[facility]/ZIP Co de Phone Number EXTERNAL EKG * EKG SCAN (06/15/2024 12:00 AM HOT METAL CRANE OPERATOR) 06/15/2024 us Provider Scan IMG ECG ORDERABLES Final Result RESULTING AGENCY from Last 3 Months Insurance MEDICAID [facility] PLAN Care Teams Glaze Wiper Relationship Specialty Start Date End Date Markus Clinton DO [facility] [place] [address] PCP - General Internal Medicine 06/15/24
--- OUTSIDE RECORDS SUMMARY | 2024-08-11 04:54 | XMS_ITS | Clinical Summary ---
Author Organization [facility] Address [address] [place] [address] Care Team Providers Care Director Business Integration Name Role Phone No, Physician Primary Care Provider [phone] Allergies No known active allergies Active Problems [...] on file Legal Sex Male 11:04 AM GLASS CUTTER Gender Identity Not on file Sexual Orientation Not on file Obstetrics History Last Filed Vital Signs Vital Sign Reading Time Taken Comments Blood Pressure 98/78 06/02/2023 4:30 PM GLASS CUTTER Pulse 76 06/02/2023 4:30 PM GLASS CUTTER Temperature 36.6 C (97.9 F) 06/02/2023 2:10 AM GLASS CUTTER Respiratory Rate 16 06/01/2023 11:05 PM GLASS CUTTER Oxygen Saturation 91% 06/02/2023 4:30 PM GLASS CUTTER Inhaled Oxygen Concentration - - Weight 172.4 kg (380 lb) 06/01/2023 11:05 PM GLASS CUTTER Height 193 cm (6' 4 ) 06/01/2023 11:05 PM GLASS CUTTER Body Mass Index 46.26 06/01/2023 11:05 PM GLASS CUTTER Plan of Treatment Health Maintenance Due Date [...] C antibody (10/15/2016 11:16 PM CDT) Pathologist [facility] Hep C Ab Nonreactive Nonreactive [facility] Comment: Interpretive Data Positive and greyzone results should be confirmed by a molecular method. If positive or greyzone, a second separately collected sample should be submitted for Hepatitis C Virus RNA. Detection and Quantitation by Real-Time Reverse Commercial Credit Reviewer-PCR.Current Interpretive data was last revised on 2016. Blood specimen (specimen) 10/15/2016 11:16 PM CDT 10/16/2016 12:00 AM CDT us Holden Yost MD LAB MICROBIOLOGY - GENER AL ORDERABLES Edited Result - Final MARYANNE BJShilpa One [facility] Department [place] [address] from Last 3 Months or Most Recently Relevant to Health Maintenance Insurance [facility] Care Teams Director Business Integration Relationship Specialty Start Date End Date No, Physician PCP - General 12/02/21
[2024-08-11 05:01] LABS: NT Pro B Type Natriuretic Pept 21 pg/mL (19.9-100); Troponin I < 0.012 ng/mL (0.000-0.034)
--- NOTE | 2024-08-11 05:13 | ED_ITS ---
HPI - General Adult General Chief complaint: Unspecified Stated complaint: diarrhea, leg swelling Time Seen by Provider: 08/11/24 04:31 History of Present Illness HPI narrative: Patient is a 43-year-old male who presents emergency department this evening with multiple chronic complaints. States that he has been having chronic right knee pain secondary to a torn meniscus, states that a few days ago his right knee with swelling but he took some ibuprofen the swelling has gone down, denies any recent falls or injury. Also states that he has been having occasional bloody diarrhea. Nonspecific chest pain that radiates down his bilateral arm and pains and needles to all his 4 extremities. Patient is also complaining of right lower quadrant abdominal pain. Denies any nausea or vomiting, any recent illness, fevers or chills. Related Data Allergies Allergy/AdvReac Type Severity Reaction Status Date / Time peanut Allergy Mild Unknown Verified 08/11/24 04:13 BUBBLE GUM Allergy Mild Swelling Uncoded 08/11/24 04:13 IVP DYE Allergy Mild Unknown Uncoded 08/11/24 04:13 IV DYE, IODINE CONTAINING Allergy Unknown Unknown Uncoded 08/11/24 04:13 CONTRAST Review of Systems 2 Review of Systems: All systems are reviewed and are negative unless stated otherwise in the HPI. [facility] Past Medical History Medical History Frequent headaches Arthritis Asthma Allergies Surgical History Surgical History No pertinent past surgical history Family History Family History Mother No problems noted. Father Asthma Diabetes mellitus Hypertension Cerebrovascular accident Heart disease Depression Alcohol abuse Anxiety Social History Social History Smoking status: Current every day smoker Additional smoking assessment comments: 1.5 ppd Alcohol intake: never Substance use: never Living arrangements: alone Gender identity (if verbalized by the patient): Male Spiritual care concerns: No Exam 2 Narrative: General: Alert, awake, afebrile, in no acute distress. HEENT: PERRL, no rhinorrhea, no post nasal drip, oropharynx clear. Neck: Trachea midline, no JVD, no lymphadenopathy. Cardiovascular: Regular rate and rhythm, no murmurs, rubs or gallops, no peripheral edema. Respiratory: Clear to auscultation bilaterally, no tachypnea, no wheezing, no rhonchi, no rubs, no respiratory distress. Abdomen: Soft, nontender, nondistended, no rebound, no guarding, no peritoneal signs. Musculoskeletal: No joint swelling or deformity, normal muscle tone, intact full range of motion at the right knee joint, no overlying erythema or evidence of infection, no swelling. Skin: No rashes or petechia, no signs of infection. Psychiatric: Alert and oriented, normal behavior and judgment for situation. Neurological: Alert and oriented to person, place, and time. Follows all commands. No focal deficits, speech is clear and fluent. Course Vital Signs Vital signs: Vital Signs Pulse Rate 97 08/11/24 04:18 Respiratory Rate 20 08/11/24 04:18 Pulse Oximetry 94 08/11/24 04:18 Temperature 97.5 F L 08/11/24 04:26 Pulse Rate 92 08/11/24 06:15 Respiratory Rate 17 08/11/24 06:15 Blood Pressure 142/86 H 08/11/24 04:31 Pulse Oximetry 94 08/11/24 06:15 Oxygen Delivery Room Air 08/11/24 04:26 Medical Decision Making MDM Narrative Medical decision making narrative: The patient was evaluated by myself in the emergency department. History is obtained from patient who is an independent historian and physical exam was performed. External medical records were reviewed at this time. IV was established and pertinent tests were ordered. EKG was obtained which revealed sinus rhythm rate of 99 beats per minute, no evidence of acute ischemia. EKG was independently interpreted by me and is currently pending official cardiology read. Laboratory results obtained revealing mild leukocytosis of 11.7 otherwise unremarkable. Troponin negative. Urinalysis unremarkable. Imaging studies obtained included CXR which was independently interpreted by me revealing no acute cardiopulmonary process, which is pending final radiology interpretation. Patient was informed that he will need an MRI of his right knee for further evaluation of meniscal injury as any x-ray is not going to evaluate any cruciate ligament or meniscal injury and patient is in agreement, specially since he denies any recent falls or trauma to the right knee so my suspicion for a fracture is unlikely. Patient is also ambulatory and is able to walk without any difficulty. CT abdomen and pelvis with IV contrast was obtained at this time and blood interpreted by me revealing: IMPRESSION: 1. No acute abdominal abnormality 2: Gallstones. No secondary findings to suggest cholecystitis. Differential diagnosis considerations include acute viral syndrome, dehydration, electrolyte derangements, GI bleed, infectious process such as pneumonia, UTI, meniscal injury, appendicitis. Comorbidities impacting this visit include none. I have evaluated and discussed social determinants of health with the patient that could potentially impact subsequent diagnosis and treatment plans. On repeat assessment of the patient, reevaluation revealed that the patient is doing well and is in no acute distress. Patient symptoms have improved since he arrived to our emergency department. Repeat vital signs were all reviewed and noted to be stable. Differential diagnosis and treatment plan were discussed with the patient at bedside. Patient agrees with discussion and after shared medical decision making agrees with discharge. All questions were answered to the patient's satisfaction. Patient will follow up with his PCP in 3-5 days. Provided with a GI and Cardiology referral and instructed to call to set up a follow-up appointment. Patient was provided with strict return precautions and instructed to return to the emergency department if any new or worsening symptoms develop. The patient was discharged in stable condition. Vital Signs Vital Signs: Vital Signs Pulse Rate 97 08/11/24 04:18 Respiratory Rate 20 08/11/24 04:18 Pulse Oximetry 94 08/11/24 04:18 Temperature 97.5 F L 08/11/24 04:26 Pulse Rate 92 08/11/24 06:15 Respiratory Rate 17 08/11/24 06:15 Blood Pressure 142/86 H 08/11/24 04:31 Pulse Oximetry 94 08/11/24 06:15 Oxygen Delivery Room Air 08/11/24 04:26 Lab Data 08/11/24 04:30 08/11/24 04:30 Labs: Lab Results 08/11/24 08/11/24 Range/Units 04:30 06:03 WBC 11.7 H (4.5-10.0) K/mm3 RBC 5.01 (4.6-6.20) M/mm3 Hgb 15.1 (14.0-18.0) g/dL Hct 47.3 (42.0-52.0) % MCV 94.4 (80-100) fl MCH 30.1 (26-34) pg MCHC 31.9 L (32-36) g/dl RDW 13.4 (11.5-14.5) % Plt Count 293 (150-375) k/mm3 MPV 10.0 (7.4-10.4) fl Immature Gran % (Auto) 0.5 (0-0.5) % Neut % (Auto) 74.7 H (45.5-73.1) % Lymph % (Auto) 15.7 L (18.3-44.2) % [place] % (Auto) 6.8 (2.6-8.5) % Eos % (Auto) 1.8 (0-4.4) % Baso % (Auto) 0.5 (0.2-1.2) % Lymph # (Auto) 1.83 (0.9-3.2) K/mm3 [place] # (Auto) 0.8 H (0.1-0.6) K/mm3 Eos # (Auto) 0.2 (0-0.3) K/mm3 Baso # (Auto) 0.1 (0.0-0.1) K/mm3 Abs Immat Gran (auto) 0.06 H (0.00-0.031) K/mm3 Absolute Neuts (auto) 8.7 H (1.3-6.7) K/mm3 Absolute Nucleated RBC 0.000 (0.0-0.012) K/mm3 Nucleated RBC % 0.0 (0.0-0.2) % PT 13.1 (11.1-14.7) Seconds INR 1.0 APTT 32.1 (22.3-36.8) Seconds Sodium 140 (137-145) mmol/L Potassium 3.9 (3.4-5.0) mmol/L Chloride 105 (98-107) mmol/L Carbon Dioxide 23 (22-30) mmol/L Anion Gap 12 (4-12) mmol/L BUN 15 (9-20) mg/dL Creatinine 0.82 (0.7-1.3) mg/dL Estim Creat Clear Calc 169 ml/min Estimated GFR > 60 (59 - ) Glucose 135 H (65-110) mg/dL Calcium 8.6 (8.4-10.2) mg/dL Magnesium 2.0 (1.6-2.3) mg/dL Total Bilirubin 0.4 (0.2-1.3) mg/dL AST 24 (17-59) U/L ALT 23 (6-50) U/L Alkaline Phosphatase 65 (38-126) U/L Troponin I < 0.012 (0.000-0.034) ng/mL NT-Pro-B Natriuret Pep 21 (19.9-100) pg/mL Total Protein 7.0 (6.3-8.2) g/dL Albumin 4.0 (3.5-5.1) g/dL Urine Color Yellow (Yellow) Urine Appearance Clear (Clear) Urine pH 5.5 (5.0-9.0) Ur Specific [place] > 1.045 H (1.001-1.035) Urine Protein Negative (Negative) mg/dL Urine Glucose (UA) Negative (Negative) mg/dL Urine Ketones Negative (Negative) mg/dL Ur Blood (Man) Negative (Negative) Urine Nitrate Negative (Negative) Urine Bilirubin Negative (Negative) Urine Urobilinogen 1.0 (<2.0) mg/dL Leukocyte Esterase Rfl Negative (Negative) BOGDAN/UL Discharge Plan Discharge Clinical Impression: Abdominal pain, Chronic knee pain, Bloody stool, Chest pain, Gallstone Patient Disposition: Home Condition: Improved Instructions: Antibiotic Form, Chest Pain (DC), Rectal Bleeding (ED), Gallstones (ED), Abdominal Pain (ED), Knee Pain (ED) Additional Instructions: Please follow-up with your family doctor within the next 3-5 days. Return to emergency department if any new or worsening symptoms develop. Follow-up with the GI doctor and automotive engineering teacher you were provided with today, call tomorrow to set up a follow-up appointment. Patient Language: Latvian Prescriptions: No Action tramadol 50 mg tablet 50 mg PO TID PRN (Reason: pain) Qty: 15 0RF penicillin V potassium 500 mg tablet 500 mg PO Q6H Qty: 28 0RF Follow-up/Referrals: Jose Juan Chicas DO [Physician] - 3 Days Lobo Turcios MD [Physician] - 3 Days Markus Clinton DO [Primary Care Provider] - 3 Days Time of Disposition: 06:06
--- NOTE | 2024-08-11 05:21 | PC.NURSE ---
Patient taken to CT at this time.
[2024-08-11 06:11] LABS: Add Urine Microscopic? NO; Appearance Urine Clear (Clear); Bilirubin Urine Negative (Negative); Blood Urine Negative (Negative); Color Urine Yellow (Yellow); Glucose Urine UA Negative (Negative); Ketones Urine Negative (Negative); Leukocyte Esterase Ur Negative LEU/UL (Negative); Nitrate Urine Negative (Negative); Protein Urine Negative (Negative); Specific Grav Ur > 1.045 (1.001-1.035); pH Urine 5.5 (5.0-9.0)
== END 2024-08-11 06:43 | disposition home or self-care (01) ==
PROVIDERS: Emergency Provider Emergency Medicine; PCP Internal Medicine
DX: K92.1 Melena (principal); K80.20 Calculus of gallbladder without cholecystitis without obstruction; R07.9 Chest pain, unspecified; R10.9 Unspecified abdominal pain; M25.561 Pain in right knee; G89.29 Other chronic pain; J45.909 Unspecified asthma, uncomplicated; M19.90 Unspecified osteoarthritis, unspecified site; F17.210 Nicotine dependence, cigarettes, uncomplicated
CPT/HCPCS: 36415; 71046; 74177; 80053; 81003; 83735; 83880; 84484; 85025; 85610; 85730; 93005; 99284; Q9967

== ENCOUNTER 2024-10-16 10:44 | Outpatient (CLI) | payer OTHER, SELFPAY ==
--- NOTE | ~2024-10-16 | US_ITS ---
US venous doppler [facility] - 10/16/2024 11:49 CDT History: 43 years old Male with bilateral lower extremity pain and swelling. Real-time sonographic images of the bilateral lower extremity venous system were obtained. Color Dop pler sonography and spectral waveform analysis were performed. No prior studies for comparison. The bilateral sapheno-femoral junctions are patent. The bilateral common femoral, superficial femor al, popliteal and posterior tibial veins are compressible and without evidence of echogenic thrombus . Impression: No evidence of deep venous thrombosis Reviewed, dictated and finalized at location A. Impression: No evidence of deep venous thrombosis
== END 2024-10-16 10:45 | disposition home or self-care (01) ==
PROVIDERS: PCP Internal Medicine; Visit Provider Internal Medicine Cardiovascular Disease
DX: R60.0 Localized edema (principal)
CPT/HCPCS: 93970

== ENCOUNTER 2024-10-17 07:36 | Outpatient (CLI) | payer OTHER, SELFPAY ==
--- NOTE | 2024-10-17 08:07 | ECHO_ITS ---
Patient Info Name: Artie Rasheed Age: 43 years : 1980 Gender: Male Ht: 74 in Wt: 383 lbs BSA: 3.10 m2 HR: 73 bpm BP: 136 / 88 mmHg Technical Quality: Fair Exam Date: 10/17/2024 8:21 AM Patient Status: O Admit Date: 10/17/2024 Exam Type: CA echo dop color flow w con Complete two-dimensional, color flow and Doppler transthoracic echocardiogram is performed with contrast to opacify the left ventricle and to improve the deliniation of the left ventricle endocardial borders. Underground Drill Operator: Joann Herrera Attending Provider: Jose Juan Chicas DO Contrast/Agitated Saline Contrast/Ag. Saline: Definity Amount: 2.00 ml Administered By: Joann Herrera Existing IV Access: No New IV Access: Left and Antecubital Space Site Condition: IV removed Summary 1. Left ventricular chamber dimension is normal. 2. Left ventricular systolic function is normal, estimated at 60-65. 3. The left ventricular diastolic function is normal. 4. Definity contrast administered improved wall motion interpretation. 5. E/e' 6 is not elevated. 6. There is mild aortic valve sclerosis. Left Ventricle E/e' 6 is not elevated. Left ventricular chamber dimension is normal. Left ventricular systolic function is normal, estimated at 60-65. The left ventricular diastolic function is normal. Definity contrast administered improved wall motion interpretation. Right Ventricle Right ventricular chamber dimension is normal. Right ventricular systolic function is normal and with normal TAPSE 2.1 cm. Left Atria Left atrial chamber dimension is normal. Right Atria Right atrial chamber dimension is normal. Aortic Valve The aortic valve is trileaflet. There is mild aortic valve sclerosis. There is no aortic valve stenosis. There is no aortic valve regurgitation. Pulmonic Valve There is no pulmonic regurgitation. Mitral Valve There is no mitral valve stenosis. There is no mitral valve regurgitation. Tricuspid Valve There is no tricuspid valve regurgitation. Pericardium/Pleural There is no pericardial effusion. Inferior Vena Cava Normal inferior vena cava with >50% collapse upon inspiration consistent with normal right atrial pressure, 5 mmHg. Aorta The aortic root size at the sinus of Valsalva is normal. Left Ventricular Outflow Tract Name Value Normal LVOT 2D LVOT Diameter 2.0 cm LVOT Doppler LVOT Peak Velocity 107 cm/s LVOT Peak Gradient 5 mmHg LVOT Mean Gradient 2 mmHg LVOT VTI 27 cm LVOT VTI/AV VTI Ratio 1.1 LVOT Stroke Volume 88 ml LVOT CO 6.4 l/min LVOT CI 2.1 l/min/m2 Pulmonic Valve Name Value Normal RVOT Doppler RVOT Peak Velocity 80 cm/s RVOT Peak Gradient 3 mmHg PV Doppler PV Peak Velocity 90 cm/s PV Peak Gradient 3 mmHg Mitral Valve Name Value Normal MV Diastolic Function MV E Peak Velocity 79 cm/s MV A Peak Velocity 53 cm/s MV E/A 1.5 MV Decel Time (PW) 189 ms MV Annular TDI MV E/e' (Septal) 8.2 MV E/e' (Lateral) 6.1 MV E/e' (Average) 7.1 Tricuspid Valve Name Value Normal Estimated PAP/RSVP RA Pressure 5 mmHg <=5 Aortic Valve Name Value Normal AV Doppler AV Peak Velocity 116 cm/s AV Peak Gradient 5 mmHg AV Mean Gradient 3 mmHg AV VTI 24 cm AV Area (Cont Eq VTI) 3.7 cm2 >=3.0 AV Area (Cont Eq Emanuel) 3.0 cm2 AV DI (Emanuel) 0.92 AV Regurgitation 2D LVOT Area 3.2 cm2 Ventricles Name Value Normal LV Dimensions 2D/MM LVOT Diameter 2.0 cm LV Fractional Shortening/Ejection Fraction 2D/MM LV Diastolic Volume (4C MOD) 103 ml LV EF (4C MOD) 68 % LV Diastolic Volume (2C MOD) 132 ml LV EF (2C MOD) 61 % LV Diastolic Volume (BP MOD) 117 ml 62-150 LV Diastolic Volume Index (BP MOD) 38 ml/m2 34-74 LV Systolic Volume (BP MOD) 41 ml 21-61 LV Systolic Volume Index (BP MOD) 13 ml/m2 11-31 LV EF (BP MOD) 65 % 52-72 LV Diastolic Length (4C) 8.7 cm LV Systolic Length (4C) 6.5 cm LV Stroke Volume (4C MOD) 70 ml Atria Name Value Normal LA Dimensions LA Volume (4C A-L) 36 ml LA Volume (BP A-L) 37 ml RA Dimensions RA Systolic Major [place] Length (4C) 5.0 cm 2.1-2.7 RA Area (4C) 16.3 cm2 <=18.0 Report Signatures
[2024-10-17] MEDS: PERFLUTREN LIPID MICROSPHERES 1.5 ML VIAL DILUTED TO 10 ML TOTAL VOLUME IV PUSH (08:35)
--- NOTE | 2024-10-17 09:53 | IVDEFINITY ---
Prior to administration of IV Definity the patient was educated on the risks and benefits of the imaging enhancing agent including potential adverse side effects. The patient verbalized understanding. Allergies were verified. No exclusion criteria were identified and at least one of the following inclusion criteria were met: 1) physician request, 2) patient technically difficult to image (per the [place] [employer] Echocardi[employer] guidelines of two or more segments not discernable within the apical view), or 3) questionable left ventricular function. ?
== END 2024-10-17 07:37 | disposition home or self-care (01) ==
LOC: ANHCARD 07:37
PROVIDERS: PCP Internal Medicine; Visit Provider Internal Medicine Cardiovascular Disease
DX: R06.09 Other forms of dyspnea (principal)
CPT/HCPCS: 93306; C8929; Q9957

== ENCOUNTER 2024-11-29 09:05 | Outpatient (CLI) | payer OTHER, SELFPAY ==
--- OUTSIDE RECORDS SUMMARY | 2024-11-29 09:11 | XMS_ITS | Clinical Summary ---
Author Organization [facility] Address [address] [place] [address] Phone Care Team Providers Care Bar Waiter/Waitress Name Role Phone Markus Clinton DO Primary Care Provider Allergies Active Allergy Reactions Criticality Noted Date Comments Iodinated Contrast Media Rash 06/15/2024 Medications No known medications Social History Tobacco Use Types Packs/Day Years [...] 11:06 AM CDT Height 185.4 cm (6' 1) 06/30/2024 11:06 AM CDT Body Mass Index 53.7 06/30/2024 11:06 AM CDT Plan of Treatment Health Maintenance Due Date Last Done Comments Hepatitis C Virus (HCV) Screening 1980 TdaP Immunization 1980 Hepatitis B Immunization (1 of 3 - 19+ 3-dose series) 1997 Pneumococcal Immunization Combined (1 of 2 - PCV) 1997 Human Papillomavirus (HPV) Immunization (1 - 3-dose SCDM series) 2005 Cologuard 12/21/2023 Colonoscopy 12/21/2023 Colorectal Cancer Screening 12/21/2023 Immunochemical Fecal Occult Blood 12/21/2023 SARS-COV-2 Immunization (3 - season) 2023 01/24/2022, 11/16/2021 Influenza Immunization (#1) 2024 01/24/2022 Respiratory Syncytial Virus (RSV) Immunization (Adult) (1 - 1-dose 75+ series) 2053 Meningococcal Immunization (ACWY) Aged Out No longer eligible b ased on patient's age to complete this topic Rotavirus Immunization Aged Out No lo nger eligible based on patient's age to complete this topic Insurance MEDICAID [employer] Care Teams Bar Waiter/Waitress Relationship Specialty Start Date End Date Markus Clinton DO [address] [place] [id number] PCP - General Internal Medicine 06/15/24
--- OUTSIDE RECORDS SUMMARY | 2024-11-29 09:11 | XMS_ITS | Clinical Summary ---
Author Organization 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 Gender Identity Not on file Sexual Orientation Not on file Obstetrics History Last Filed Vital Signs Vital Sign Reading Time Taken Comments Blood Pressure 98/78 06/02/2023 4:30 PM CREATIVE LEAD Pulse 76 06/02/2023 4:30 PM CREATIVE LEAD Temperature 36.6 C (97.9 F) 06/02/2023 2:10 AM CREATIVE LEAD Respiratory Rate 16 06/01/2023 11:05 PM CREATIVE LEAD Oxygen Saturation 91% 06/02/2023 4:30 PM CREATIVE LEAD Inhaled Oxygen Concentration - - Weight 172.4 kg (380 lb) 06/01/2023 11:05 PM CREATIVE LEAD Height 193 cm (6' 4) 06/01/2023 11:05 PM CREATIVE LEAD Body Mass Index 46.26 06/01/2023 11:05 PM CREATIVE LEAD Plan of Treatment Health Maintenance Due Date Last Done Comments Colon Cancer Screening-Colonoscopy 1980 Depression Screening 1980 DTaP/Tdap/Td Vaccine (1 - Tdap) 1989 Hepatitis B Screening 1996 Regular Well Visit/Exam 18-64 1996 HPV Vaccines (1 - 3-dose SCD M series) 2005 Covid-19 Vaccine (2023-2 5 season) 2023 01/24/2022, 11/16/2021 Influenza Vaccine (#1) 2024 01/24/2022 Hepatitis C Screening Completed 10/15/2016 , 10/29/2015 Pneumococcal vaccine <65 Aged Out No longer eligible based on patient's age to complete this topic Procedures Procedure Name Priority Date/Time Associated Diagnosis Comments HEPATITIS C ANTIBODY Routine Gen Lab 10/15/2016 11:16 PM CDT from Last 3 Months or Most Recently Relevant to Health Maintenance Results * Hepatitis C antibody (10/15/2016 11:16 PM CDT) Pathologist [facility] Hep C Ab Nonreactive Nonreactive [facility] Comment: Interpretive Data Positive and greyzone results should be confirmed by a molecular method. If positive or greyzone, a second separately collected sample should be submitted for Hepatitis C Virus RNA. Detection and Quantitation by Real-Time Reverse Facilities Clerk-PCR.Current Interpretive data was last revised on 2016. Blood specimen (specimen) 10/15/2016 11:16 PM CDT 10/16/2016 12:00 AM CDT us Holden Yost MD LAB MICROBIOLOGY - GENER AL ORDERABLES Edited Result - Final [facility] Department [place] [address] from Last 3 Months or Most Recently Relevant to Health Maintenance Insurance [facility] Care Teams Rubber Off Relationship Specialty Start Date End Date No, Physician PCP - General 12/02/21
--- OUTSIDE RECORDS SUMMARY | 2024-11-29 09:11 | XMS_ITS | Clinical Summary ---
Author Organization [facility] Address [address] [place] [address] Care Team Providers Care Accredited Legal Secretary Name Role Phone Unavailable Primary Care Provider Unavailabl e Source Comments [facility],non-owned Affiliates and Associated Physician Practices is amultiple site organization consisting of ambulatory clinics and hospital sitesin [place], [place], [place] and [place]. This disclosure is being madepursuant to the Care Everywhere program and may not contain all information available regarding this patient. 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 Gender Identity Not on file Sexual Orientation [...] (360 lb 1 oz) 06/29/2018 9:00 PM [employer]ATION SUPERINTENDENT Height 195.6 cm (6' 5) 06/29/2018 9:00 PM [employer]IL[employer]ATION SUPERINTENDENT Body Mass Index 42.7 06/29/2018 9:00 PM [employer]OR [employer]IL[employer]ATION SUPERINTENDENT Plan of Treatment Health Maintenance Due Date [...] of 3 - 19+ 3-dose series) 1997 HPV VACCINE (1 - 3-dose SCDM series) 2005 LIPID TESTING 07/02/2023 07/01/2018 COVID-19 VACCINE (1 - 2023-2 5 season) 2023 DEPRESSION SCREENING 04/24/2024 INFLUENZA VACCINE (#1) 2024 ZOSTER VACCINE (1 of 2) 2028 [...] HIV-1 HIV-2 ANTIGEN/ANTIBODY STAT 06/29/2018 4:34 PM LABOR UTIL[employer]ATION SUPERINTENDENT from Last 3 Months or Most Recently Relevant to Health Maintenance Results * (ABNORMAL) LIPID PROFILE (07/01/2018 6:34 AM CDT) Cholesterol Total 184 <200 mg/dL 07/01/2018 7:05 AM [facility] HDL 31(L) >40 mg/dL 07/01/2018 7:05 AM [facility] Comment: ATP III Classification of HDL Cholesterol: <40 mg/dL: Considered a major risk factor. >60 mg/dL: Considered a negative risk factor. LDL Calculated 127(H) <100 mg/dL 07/01/2018 7:05 AM [facility] Comment: ATP III Classification of LDL Cholesterol: <100 mg/dL: Optimal 100 - 129 mg/dL: Near Optimal/Above Optimal 130 - 159 mg/dL: Borderline High 160 - 189 mg/dL: High >190 mg/dL: Very High Triglycerides 130 <150 mg/dL 07/01/2018 7:05 AM [facility] Comment: ATP III Classification of Triglycerides: <150 mg/dL: Normal 150 - 199 mg/dL: Borderline High 200 - 400 mg/dL: High >500 mg/dL: Very High Blood BLOOD SPECIMEN / Unknown Venipuncture / Unknown 07/01/2018 6:34 AM CDT 07/01/2018 6:39 AM CDT us Elsa Morejon MD LAB - CHEMISTRY ORDERABLES Final Result Performing Organization Address [place]/State/[facility] Co de Phone Number [address] [phone] * HIV-1 HIV-2 ANTIGEN/ANTIBODY (06/29/2018 4:34 PM LABOR UTILIZATION SUPERINTENDENT) HIV Antigen/Antibod y 1 & 2 Non-reacti ve Non-react belinda 06/29/2018 5:17 PM LABOR UTILIZATION SUPERINTENDENT [facility] Comment: Neither HIV-1 p24 Antigen nor HIV-1/HIV-2 Antibodies are detected. Blood BLOOD SPECIMEN / Unknown Venipuncture / Unknown 06/29/2018 4:34 PM [employer]OR UTILIZATION SUPERINTENDENT 06/29/2018 4:34 PM LABOR UTILIZATION SUPERINTENDENT us Elia Caba MD LAB - HEMATOLOGY ORDERABLES Final Result [id number] [place] [address], [facility] [phone] from Last 3 Months or Most Recently Relevant to Health Maintenance Insurance MEDICAID - [place] Advance Directives * Full Code (Latest Code Status on File) Date Activated Date Inactivated Comments 06/29/2018 8:50 PM 07/02/2018 3:59 PM * Full Code Date Activated Date Inactivated Comments 06/29/2018 12:23 PM 06/29/2018 8:50 PM
[2024-11-29 09:53] LABS: Hematocrit 50.8 % (42.0-52.0); Hemoglobin 16.8 g/dL (14.0-18.0); Immature Granulocyte Percent A 0.7 % (0-0.5); Lymphocytes Absolute Auto 2.31 K/mm3 (0.9-3.2); Mean Corpuscular HGB Conc 33.1 g/dl (32-36); Mean Corpuscular Hemoglobin 30.3 pg (26-34); Mean Corpuscular Volume 91.7 fl (80-100); Nucleated Red Blood Cells Absolute Auto 0.000 K/mm3 (0.0-0.012); Nucleated Red Blood Cells Perc 0.0 % (0.0-0.2); Platelet Count Result 341 k/mm3 (150-375); Red Blood Count 5.54 M/mm3 (4.6-6.20); White Blood Count 12.3 K/mm3 (4.5-10.0)
[2024-11-29 10:15] LABS: Alanine Aminotransferase 22 U/L (6-50); Albumin Level 4.3 g/dL (3.5-5.1); Alkaline Phosphatase 67 U/L (38-126); Anion Gap 9 mmol/L (4-12); Aspartate Amino Transferase 27 U/L (17-59); Bilirubin,Total 0.7 mg/dL (0.2-1.3); Blood Urea Nitrogen 15 mg/dL (9-20); Calcium 8.8 mg/dL (8.4-10.2); Carbon Dioxide 26 mmol/L (22-30); Chloride 102 mmol/L (98-107); Estimated Glomerular Filt Rate > 60; Glucose 113 mg/dL (65-110); Potassium 4.7 mmol/L (3.4-5.0); Sodium 137 mmol/L (137-145); Total Protein 8.4 g/dL (6.3-8.2)
[2024-11-29 10:51] LABS: Thyroid Stimulating Hormone 1.620 uIU/mL (0.465-4.680)
[2024-11-29 16:17] LABS: Hemoglobin A1C 5.9 % (<5.7)
== END 2024-11-29 09:06 | disposition home or self-care (01) ==
LOC: ANHLAB 09:09
PROVIDERS: PCP Nurse Practitioner; Visit Provider Nurse Practitioner
DX: Z13.29 Encounter for screening for other suspected endocrine disorder (principal); R53.83 Other fatigue; R73.01 Impaired fasting glucose
CPT/HCPCS: 36415; 80053; 83036; 84443; 85025